=== PATIENT | female | born 1990 | race Caucasian/White ===

== ENCOUNTER 2017-12-12 21:49 | Emergency (ER) | payer BC, SELFPAY ==
[2017-12-12 21:50] VITALS: BP 126/72; PULSE 88; RESP 20; TEMP 36.7; O2SAT 94; BMI 40.1
--- NOTE | 2017-12-12 22:36 | RAD_ITS ---
STUDY: X-RAY CHEST REASON FOR EXAM: Female, 27 years old. Cough TECHNIQUE: Frontal and lateral views of the chest. COMPARISON: None. FINDINGS: The lungs are clear and expanded. There is no demonstrated pleural abnormality. Normal size heart. Normal mediastinum and dai. Normal visualized pulmonary arteries. Normal visualized aortic arch and descending thoracic aorta. Normal visualized thoracic spine. Normal visualized ribs, clavicles, and shoulders. There is no demonstrated abnormality of the visualized soft tissue structures of the upper abdomen. RAD/Chest PA and Lateral IMPRESSION: Normal x-ray examination of the chest. Electronically Signed: Andres Funk MD at 23:05 EDT , Service support ,
[2017-12-12] MEDS: predniSONE 20 MG Tablet 40 MG PO (22:48)
[2017-12-12] MEDS: Azithromycin 250 MG Tablet 500 MG PO (22:48)
[2017-12-12 22:53] VITALS: PULSE 98; RESP 18
[2017-12-12] MEDS: Ipratropium/Albuterol Sulfate 3 ML AMPUL.NEB INHALATION (22:53)
--- NOTE | 2017-12-12 23:38 | ED.DCSUM_ITS ---
- ER Visit Summary Date of Service: 12/12/17 Chief Complaint: Cough History of Present Illness: The patient is a 27 F with a cough and wheezing for 2 days. Patient had similar symptoms a couple weeks ago and was treated with prednisone. She has no history of lung disease or any medical issues. No history of heart disease or PE. No fevers. Non-smoker. Physical Examination: Afebrile and vital signs unremarkable. Breathing comfortably. Audible wheezing. Airway intact. No stridor. Heart regular rate and rhythm. Lungs show wheezing in all lewis with expiration. Calf soft and supple. Skin appears normal. Test Results: Chest x-ray unremarkable. Emergency Department Course and Treatment: I am concerned that the patient's symptoms returned, making a bacterial cause more likely. I did check a chest x- ray and this showed no evidence of pneumonia. Patient received prednisone, azithromycin, and DuoNeb here. On reevaluation, she is feeling better. Lung sounds are clear in all lewis without wheeze. Treatment Plan: We will prescribe a burst therapy of prednisone, azithromycin, and albuterol inhaler. Follow-up with primary care. Return for any new or worsening issues. Disposition: Discharged Impression: 1. Acute bronchitis This note was generated with [employer] dictation software. It may contain incorrect words, spelling, and punctuation that were not noted in review of the chart prior to signing ED Disposition - Plan for ED Patient: Chief Complaint: Cough Referrals: Aicha Reinoso MD [Primary Care Provider] -
--- NOTE | 2017-12-12 23:38 | ED.DEP ---
ED Disposition - Plan for ED Patient: Chief Complaint: Cough Instructions: ED Reactive Airway Disease Prescriptions: Azithromycin [Zithromax] 250 mg PO DAILY #4 tab Prednisone 10 mg PO UD #33 tab Referrals: Aicha Reinoso MD [Primary Care Provider] -
[2017-12-12 23:48] VITALS: BP 123/74; PULSE 96; RESP 18; O2SAT 93
--- NOTE | 2017-12-12 23:48 | ED.RN ---
PT GIVEN WRITTEN AND VERBAL DISCHARGE INSTRUCTIONS AND HOME GOING PRESCRIPTIONS. PT GIVEN INHALER AND INSTRUCTED ON USE BY THIS RN. PT DENIES ANY FURTHER QUESTIONS, AND IS TO FOLLOW UP WITH DR. MALLORY. PT AMBULATORY OUT OF DEPARTMENT WITH FAMILY.
== END 2017-12-12 23:48 | disposition home or self-care (01) ==
PROVIDERS: Emergency Provider Emergency Medicine; Family Provider Family Medicine; PCP Family Medicine
DX: J20.9 Acute bronchitis, unspecified (principal)
CPT/HCPCS: 71046; 94640; 99282

== ENCOUNTER 2022-10-26 23:00 | Inpatient (IN) | payer BC, SELFPAY ==
[2022-10-26 23:01] VITALS: BP 124/89; PULSE 99; RESP 15; TEMP 37.2; O2SAT 96; BMI 46.9
[2022-10-26 23:34] LABS: Internal QC Validated? YES +Cl - CLEAR BKGD; Pregnancy, Serum, hCG Quali. NEGATIVE Negative
[2022-10-26 23:37] LABS: Absolute Lymphocyte Count 1.23 X10^3/uL (0.83-4.51); Absolute Neutrophil Count 13.1 X10^3/uL (2.0-7.7); Basophil# 0.02 X10^3/uL; Basophil% 0.1 % (0-1); Eosinophil# 0.01 X10^3/uL; Eosinophils% 0.1 % (0-5); Hematocrit 44.7 % (37-47); Hemoglobin 14.6 g/dL (12.0-15.0); Lymphocyte # 1.23 X10^3/ul (0.83-4.51); Lymphocyte % 8.2 % (19-41); Mean Corp Hgb Conc 32.7 g/dL (32-36); Mean Corpuscular Hgb 28.1 pg (27.0-32.0); Mean Corpuscular Volume 86.1 fL (81-99); Mean Platelet Vol. 12.8 fl (6.2-12.0); Monocyte# 0.55 X10^3/uL; Monocyte% 3.7 % (0-10); NRBC Flagged by Analyzer 0 % (0-5); Neutrophil # 13.07 X10^3/uL (2.7-7.7); Neutrophil % 87.6 % (47-70); Platelet Count 317 K/mm3 (150-450); RBC Distribution Width CV 15.9 % (11.6-14.6); RBC Distribution Width SD 49.1 fl (35.1-43.9); Red Blood Count 5.19 M/mm3 (4.2-5.4); White Blood Count 14.9 K/mm3 (4.4-11.0)
[2022-10-26 23:38] LABS: Anion Gap 12 (5-15); BUN 11 mg/dL (7-18); BUN/Creat Ratio 13.5 RATIO (10-20); Calcium,Total 9.9 mg/dL (8.5-10.1); Chloride 103 mmol/L (98-107); Creatinine, Serum 0.81 mg/dL (0.55-1.02); EST Glomerular Filtration Rate 86 mL/min (>60); Est Glom Filt Rate - Afr Amer 104 mL/min (>60); Estimated Creatinine Clearance 88.89 ml/min; Glucose 175 mg/dL (74-106); Potassium 4.1 mmol/L (3.5-5.1); Sodium Level 137 mmol/L (136-145)
[2022-10-27] VITALS (10 sets, daily range): BP systolic 118–161; BP diastolic 86–99; PULSE 72–102; RESP 16–18; TEMP 36.3–36.9; O2SAT 91–99; BMI 46.4
--- NOTE | 2022-10-27 00:01 | CT_ITS ---
INDICATION: Pain RLQ EXAMINATION: CT ABDOMEN AND PELVIS WITH CONTRAST - CT Abdomen And Pelvis W/ Contrast Injection TECHNIQUE: Helically acquired images were obtained of the abdomen and pelvis following IV contrast. A radiation dose optimization technique was used for this scan. IV Contrast dosage and agent: Oral contrast: None. COMPARISON: None. FINDINGS: LOWER CHEST: Lung bases are clear. No cardiomegaly or pericardial effusion. LIVER: Homogeneous. No focal mass. GALLBLADDER AND BILIARY TREE: No calcified gallstones. No gallbladder distension or wall edema. No intra- or extrahepatic biliary ductal dilation. PANCREAS: Fat stranding adjacent to the head and body of the pancreas consistent with acute pancreatitis. SPLEEN: Normal size without focal cystic or solid mass. ADRENAL GLANDS: No nodules. KIDNEYS AND URETERS: Normal renal size and position. No hydronephrosis. PERITONEUM: No ascites or free air. No other fluid collection. BOWEL: No evidence of acute appendicitis. No stomach or bowel distension. No focal inflammatory change. LYMPH NODES: No enlarged mesenteric or retroperitoneal lymph nodes. VESSELS: Aorta is non-dilated. URINARY BLADDER: Unremarkable. REPRODUCTIVE ORGANS: No pelvic masses. ABDOMINAL WALL: Small umbilical hernia containing fat. BONES: No lytic or blastic abnormality. CT/Abdomen/Pelvis W IV Cont ONLY IMPRESSION: Acute pancreatitis. Electronically Signed: Moisés Scanlon MD at 1:12 [facility] ,
[2022-10-27 00:07] LABS: Mucous, Urine 0 SEEN /hpf (<or=2+)
[2022-10-27 00:09] LABS: Color, Urine Amber (Yellow); Glucose, Dipstick Normal (Normal); Leukocyte Esterase-Dipstick 500 /ul (Negative); Nitrite-Dipstick Positive (Negative); Occult Blood-Urine 150 /ul (Negative); Protein-Dipstick 30 mg/dl (Negative); Urine Clarity Cloudy (Clear); Urine Urobilinogen 4 mg/dl (Normal)
[2022-10-27 00:11] LABS: Urine Bilirubin Dipstick 6 mg/dL (Negative)
[2022-10-27 00:12] LABS: Ketone-Dipstick 150 mg/dl (Negative)
[2022-10-27 00:19] LABS: Bacteria 3+ /hpf (None Seen); Red Blood Cells-Urine 0-5 SEEN /hpf (0-5); Squamous Epithelial Cells - UA 10-25 SEEN /hpf (5-10); White Blood Cells 50-100 SEEN /hpf (0-5)
--- NOTE | 2022-10-27 00:22 | EDS_ITS ---
HPI HPI - GI History of Present Illness Chief Complaint: Abd Pain Informant: patient Narrative Narrative: Patient presents with abdominal pain that started somewhere around 3:00 yesterday afternoon. It started mild and is slowly worsened. It waxes and wanes a little bit but the trend is clearly toward worsening. At first she thought it was a little bit more upper mid abdomen and the lower abdomen but now it seems to be more lower and leans more toward the right side. She has never had back or flank pain. She vomited once yesterday but has not had that issue today. But she has only eaten 1 bit of toast today. She denies any urinary symptoms such as frequency urgency. She does note that her urine looks dark. Ever since she has been on Ozempic for about a month her urine has been getting darker and darker. Her last menstrual cycle was about 3 weeks ago normal timing. She has no discharge or bleeding now. She has had no prior abdominal surgery including no appendectomy or cholecystectomy. No fever at home although she has felt hot her highest temperature measured was about 99. When I see the patient I note her urine is rather dark and almost oranges colored. [facility] Medical History (Updated 10/27/22 @ 07:[address] Kenrick Shi MD) Hypothyroidism Home Medications azithromycin 250 mg tablet 250 mg PO DAILY #4 tabs 12/12/17 [Rx Last Taken Unknown] prednisone 10 mg tablet 10 mg PO UD #33 tabs 12/12/17 [Rx Last Taken Unknown] Allergy/AdvReac Type Severity Reaction Status Date / Time Penicillins Allergy Unknown Verified 10/26/22 23:08 Social History Smoking Status: Never smoker ROS ROS ED Constitutional Constitutional ED: Reports subjective ENT ENT ED: Denies rhinorrhea Cardiovascular Cardiovascular: Denies chest pain Respiratory/Chest Respiratory/Chest: Denies cough or dyspnea Gastrointestinal Gastrointestinal: Reports abdominal pain, nausea and vomiting; Denies constipation or diarrhea Genitourinary Genitourinary ED: Reports other Details: See history of present illness. ; Denies dysuria, hematuria or urinary frequency Musculoskeletal Musculoskeletal: Denies back pain Integumentary Denies rash Neurologic Neurologic: Denies paresthesias Endocrine Endocrinology: Denies polydipsia or polyuria Hematologic/Lymphatic Hematologic/Lymphatic: Denies easy bleeding or easy bruising Allergic/Immunologic Allergic/Immunologic ED: Denies urticaria EXAM Physical Exam Narrative Exam Narrative: Patient is awake alert sitting on bed. She is nontoxic. HEENT shows minimally dry mucous membranes no sign of trauma. Chest is clear bilaterally no pain with a deep breath. When she takes a very deep breath it she states it does hurt her abdomen but is all in the lower abdomen not even upper abdomen. But it does not cause any chest discomfort. Heart is regular without murmur gallop or rub. Peripheral pulses are equal. Abdomen is obese but does not appear to be distended. Bowel sounds are normal. She does have some tenderness that tends to be more in the lower abdomen and more on the right side. Left upper is not at all tender. When I press in the right upper abdomen it does cause some discomfort but it causes discomfort in the right lower abdomen not the right upper. No rebound or guarding. : No CVA tenderness. No suprapubic tenderness of marked nature. Extremities show no edema. Skin shows no rash including in the area of discomfort. Const Vital Signs: 10/26/22 23:01 10/27/22 01:05 Temperature 98.9 F Temperature Source Temporal Pulse Rate 99 Respiratory Rate 15 Blood Pressure 124/89 H Blood Pressure Mean 100 Pulse Ox 96 99 Oxygen Delivery Method Room Air Room Air MDM MDM MDM Narrative Medical decision making narrative: My independent interpretation of patient's CT of the abdomen does not show any inflammation near the appendix. But she does have a lot of inflammation near the pancreas. Final reading is also consistent with acute pancreatitis but no acute gallbladder abnormality. Her blood work shows mild elevation of white count at 14.9. This hemoglobin and platelets are normal. Electrolytes are normal. Glucose is a bit up at 175. But her liver function test show elevation of all her transaminases and total bili. is negative. Patient was started on Ozempic about a month ago. She has noticed dark urine since. I think this is likely a contributor to her pancreatitis. But I am surprised at the elevated liver test. I think this patient does need to be admitted with significantly elevated lipase also. She is also showing signs of UTI on the urine. This will be treated with an initial dose. Levaquin usually does not cause significant liver function test elevations. I discussed the case with the hospitalist. Lab Data Attestation: I reviewed the patient's lab results. Labs: Laboratory Results - last 24 hr 10/26/22 10/26/22 10/26/22 23:10 23:10 23:10 WBC 14.9 H RBC 5.19 Hgb 14.6 Hct 44.7 MCV 86.1 MCH 28.1 MCHC 32.7 RDW Std Deviation 49.1 H RDW Coeff of Ilana 15.9 H Plt Count 317 MPV 12.8 H Immature Gran % (Auto) 0.300 Neut % (Auto) 87.6 H Lymph % (Auto) 8.2 L [place] % (Auto) 3.7 Eos % (Auto) 0.1 Baso % (Auto) 0.1 Absolute Neuts (auto) 13.1 H Absolute Lymphs (auto) 1.23 Nucleated RBC % 0 PT INR Sodium 137 Potassium 4.1 Chloride 103 Carbon Dioxide 22.0 Anion Gap 12 BUN 11 Creatinine 0.81 Estim Creat Clear Calc 88.89 Est GFR (MDRD) Af Amer 104 Est GFR (MDRD) Non-Af 86 BUN/Creatinine Ratio 13.5 Glucose 175 H Calcium 9.9 Total Bilirubin Direct Bilirubin AST ALT Alkaline Phosphatase Total Protein Albumin Globulin Lipase Serum , Qual NEGATIVE Urine Color Urine Clarity Urine pH Ur Specific [place] Urine Protein Urine Glucose (UA) Urine Ketones Urine Occult Blood Urine Nitrite Urine Bilirubin Urine Urobilinogen Ur Leukocyte Esterase Urine RBC Urine WBC Ur Squamous Epith Cells Urine Bacteria Urine Mucus 10/26/22 10/26/22 10/26/22 23:10 23:10 23:58 WBC RBC Hgb Hct MCV MCH MCHC RDW Std Deviation RDW Coeff of Ilana Plt Count MPV Immature Gran % (Auto) Neut % (Auto) Lymph % (Auto) [place] % (Auto) Eos % (Auto) Baso % (Auto) Absolute Neuts (auto) Absolute Lymphs (auto) Nucleated RBC % PT INR Sodium Potassium Chloride Carbon Dioxide Anion Gap BUN Creatinine Estim Creat Clear Calc Est GFR (MDRD) Af Amer Est GFR (MDRD) Non-Af BUN/Creatinine Ratio Glucose Calcium Total Bilirubin 3.80 H Direct Bilirubin 2.51 H AST 160 H ALT 505 H Alkaline Phosphatase 201 H Total Protein 8.3 H Albumin 3.7 Globulin 4.6 H Lipase 8531 H Serum , Qual Urine Color [place] Urine Clarity Cloudy Urine pH 5.0 Ur Specific [place] 1.030 Urine Protein 30 H Urine Glucose (UA) Normal Urine Ketones 150 A* Urine Occult Blood 150 H Urine Nitrite Positive H Urine Bilirubin 6 H Urine Urobilinogen 4 H Ur Leukocyte Esterase 500 H Urine RBC 0-5 SEEN Urine WBC 50-100 SEEN Ur Squamous Epith Cells 10-25 SEEN Urine Bacteria 3+ Urine Mucus 0 SEEN 10/27/22 01:39 WBC RBC Hgb Hct MCV MCH MCHC RDW Std Deviation RDW Coeff of Ilana Plt Count MPV Immature Gran % (Auto) Neut % (Auto) Lymph % (Auto) [place] % (Auto) Eos % (Auto) Baso % (Auto) Absolute Neuts (auto) Absolute Lymphs (auto) Nucleated RBC % PT 13.4 INR 1.0 Sodium Potassium Chloride Carbon Dioxide Anion Gap BUN Creatinine Estim Creat Clear Calc Est GFR (MDRD) Af Amer Est GFR (MDRD) Non-Af BUN/Creatinine Ratio Glucose Calcium Total Bilirubin Direct Bilirubin AST ALT Alkaline Phosphatase Total Protein Albumin Globulin Lipase Serum , Qual Urine Color Urine Clarity Urine pH Ur Specific [place] Urine Protein Urine Glucose (UA) Urine Ketones Urine Occult Blood Urine Nitrite Urine Bilirubin Urine Urobilinogen Ur Leukocyte Esterase Urine RBC Urine WBC Ur Squamous Epith Cells Urine Bacteria Urine Mucus Radiography Diagnostic Testing: Clinical Impression(s) from Imaging Studies Abdomen/Pelvis CT 10/27/22 00:01 IMPRESSION: Acute pancreatitis. Electronically Signed: Moisés Scanlon MD at 1:12 EST , Discharge Plan Dx/Rx/DC Orders Clinical Impression: Pancreatitis, Morbid obesity with BMI of 45.0-49.9, adult, UTI (urinary tract infection) Disposition Disposition: Acute Care Hospital [facility]
[2022-10-27 00:38] LABS: AST(SGOT) 160 U/L (15-37); Alanine Aminotransfer ALT/SGPT 505 U/L (13-56); Albumin, Serum 3.7 g/dL (3.2-5.0); Alkaline Phosphatase 201 U/L (45-117); Bilirubin, Direct 2.51 mg/dL (0.00-0.30); Globulin 4.6 g/dL (2.2-4.2); Protein, Total 8.3 g/dL (6.4-8.2)
[2022-10-27] MEDS: Ondansetron 4 MG/2 ML Vial IV (01:02)
[2022-10-27] MEDS: Morphine 4 MG/ML Syringe IV (01:02)
[2022-10-27] MEDS: 0.9% Normal Saline 1,000 ML 1000 ML IV (01:03)
[2022-10-27 01:45] LABS: Lipase 8531 U/L (73-393)
[2022-10-27 01:55] LABS: Prothrombin Time (Protime)PT. 13.4 SECONDS (11.7-14.9)
--- NOTE | 2022-10-27 02:35 | PCM.HP.STD ---
HPI - General General Date of Admission: 10/27/22 Date of Service: 10/27/22 Chief Complaint: Abdominal pain HPI Narrative MARTIN LÓPEZ, is a 31 F with a significant history of morbid obesity and hypothyroidism who presents to the emergency department with abdominal pain. She reports that her abdominal pain started concurrently at her epigastric area and right lumbar area. The pain at the right lumbar area radiated to her bilateral lower abdomen. The pain started a day before presentation and the pain has been progressively worsening. At rest the pain is a dull pain. When she takes a deep breath the pain becomes sharp and more intense. Also the pain worsens with moving. She denies any ameliorating factors to the pain. The pain at its high intensity is a 9 out of 10. Associated with her symptoms is nausea and vomiting which has improved. However she is unable to eat as when she eats she feels safe at the food is occupying her epigastric area. Patient is on metformin and Ozempic which she takes for prediabetes and for weight loss. She reported that follow-up test showed that she had no prediabetes. She reported beginning taking Ozempic at around since September 2022. When she started Ozempic she has noticed that her urine tends very dark. [facility] Medical History (Updated 10/27/22 @ 04:[address] Trevon Chappell MD) Hypothyroidism Home Medications azithromycin 250 mg tablet 250 mg PO DAILY #4 tabs 12/12/17 [Rx Last Taken Unknown] prednisone 10 mg tablet 10 mg PO UD #33 tabs 12/12/17 [Rx Last Taken Unknown] Allergy/AdvReac Type Severity Reaction Status Date / Time Penicillins Allergy Unknown Verified 10/26/22 23:08 Family History no significant family his no significant family history Surgical History no surgical history no surgical history Social History Smoking Status: Never smoker ROS ROS Narrative Pertinent positives and pertinent negatives as noted in HPI. All other systems were reviewed and are negative Vital Signs Vital Signs Vital Signs: 10/26/22 23:01 10/27/22 01:05 Temperature 98.9 F Temperature Source Temporal Pulse Rate 99 Respiratory Rate 15 Blood Pressure 124/89 H Blood Pressure Mean 100 Pulse Ox 96 99 Oxygen Delivery Method Room Air Room Air Weight Weight: 127.913 kg Body Mass Index (BMI) 46.9 Physical Exam Narrative Physical exam: General: Well-nourished, well-developed. Head: Normocephalic, atraumatic, no tenderness Eyes: Sclera icterus. Vision is grossly intact. EOMI ENT, no trauma, moist mucous membranes, no rhinorrhea Neck: Nontender, No thyromegaly. CVS: Regular rate and rhythm. S1-S2 present. No murmur, gallop or rub. Respiratory : clear to auscultation bilaterally, chest wall nontender, no wheezing Abdomen: Soft, nontender, nondistended, normal bowel sounds, no masses : Deferred Back: Nontender, no CVA tenderness, no midline spinal tenderness, deformities, step-offs Extremities: Nontender full range of motion, no trauma Skin: Sclerae icterus. Normal color, no trauma, abrasions Neuro: Alert, oriented, cranial nerves II through XII grossly intact. Psychiatry: Normal mood. Normal affect. Not depressed. Not anxious. Results Lab / Micro Data Result Diagrams: 10/26/22 23:10 10/26/22 23:10 Labs: Laboratory Results - last 24 hr 10/26/22 23:10: WBC 14.9 H, RBC 5.19, Hgb 14.6, Hct 44.7, MCV 86.1, MCH 28.1, MCHC 32.7, RDW Std Deviation 49.1 H, RDW Coeff of Ilana 15.9 H, Plt Count 317, MPV 12.8 H, Immature Gran % (Auto) 0.300, Neut % (Auto) 87.6 H, Lymph % (Auto) 8.2 L, [place] % (Auto) 3.7, Eos % (Auto) 0.1, Baso % (Auto) 0.1, Absolute Neuts (auto) 13.1 H, Absolute Lymphs (auto) 1.23, Nucleated RBC % 0 10/26/22 23:10: Sodium 137, Potassium 4.1, Chloride 103, Carbon Dioxide 22.0, Anion Gap 12, BUN 11, Creatinine 0.81, Estim Creat Clear Calc 88.89, Est GFR (MDRD) Af Amer 104, Est GFR (MDRD) Non-Af 86, BUN/Creatinine Ratio 13.5, Glucose 175 H, Calcium 9.9 10/26/22 23:10: Serum , Qual NEGATIVE 10/26/22 23:10: Total Bilirubin 3.80 H, Direct Bilirubin 2.51 H, AST 160 H, ALT 505 H, Alkaline Phosphatase 201 H, Total Protein 8.3 H, Albumin 3.7, Globulin 4.6 H 10/26/22 23:10: Lipase 8531 H 10/26/22 23:58: Urine Color [place], Urine Clarity Cloudy, Urine pH 5.0, Ur Specific [place] 1.030, Urine Protein 30 H, Urine Glucose (UA) Normal, Urine Ketones 150 A*, Urine Occult Blood 150 H, Urine Nitrite Positive H, Urine Bilirubin 6 H, Urine Urobilinogen 4 H, Ur Leukocyte Esterase 500 H, Urine RBC 0-5 SEEN, Urine WBC 50-100 SEEN, Ur Squamous Epith Cells 10-25 SEEN, Urine Bacteria 3+, Urine Mucus 0 SEEN 10/27/22 01:39: PT 13.4, INR 1.0 Radiology Impression Abdomen/Pelvis CT 10/27/22 00:01 IMPRESSION: Acute pancreatitis. Electronically Signed: Moisés Scanlon MD at 1:12 EST , Assessment & Plan Assessment/Plan (1) Pancreatitis: (2) Morbid obesity with BMI of 45.0-49.9, adult: PLAN: Plan Acute pancreatitis Likely medication induced (Ozempic) Lipase level: 8,531. Hematocrit: 44.7 BUN:11 Abdomen/pelvis CT with acute pancreatitis. Abdomen pelvis CT was independently interpreted and I agree with radiology interpretation. Lactated Ringer's at 250ml/hr Pain regimen: Received morphine 4 mg at the emergency department and continued on a as needed basis. At emergency department. [] Ordered. Antiemetics: Received morphine 4 mg IV at the emergency department and continued on a as needed basis. Ultrasound gallbladder N.p.o. till after ultrasound gallbladder tenderness Liquid diet CBC showed white count of 14,900, trend. CMP showed elevated liver biochemistry; and elevated bilirubin. Trend CMP. GI consult Acute cystitis Reports dark urine. Urinalysis abnormal. Allergic to penicillin (allergy unknown) . Started on Levaquin at the emergency department and continued. Morbid Obesity: BMI: 46.9 kg/m?. Complicates care. Lifestyle modification recommended. DVT prophylaxis Subcutaneous Lovenox ordered. Charges/Coding Visit Charges Inpatient E&M: 22757 Init Hosp L2
[2022-10-27] MEDS: levoFLOXacin IV 500 MG/100 ML BAG 100 MG IV (02:52)
[2022-10-27] MEDS: Lactated Ringers 1,000 ML 250 ML IV ×3 (03:46→12:17)
[2022-10-27 04:24] LABS: Absolute Lymphocyte Count 1.36 X10^3/uL (0.83-4.51); Absolute Neutrophil Count 13.2 X10^3/uL (2.0-7.7); Basophil# 0.01 X10^3/uL; Basophil% 0.1 % (0-1); Hematocrit 43.1 % (37-47); Hemoglobin 13.6 g/dL (12.0-15.0); Lymphocyte # 1.36 X10^3/ul (0.83-4.51); Lymphocyte % 8.9 % (19-41); Mean Corp Hgb Conc 31.6 g/dL (32-36); Mean Corpuscular Hgb 27.5 pg (27.0-32.0); Mean Corpuscular Volume 87.2 fL (81-99); Mean Platelet Vol. 12.6 fl (6.2-12.0); Monocyte# 0.68 X10^3/uL; Monocyte% 4.4 % (0-10); NRBC Flagged by Analyzer 0 % (0-5); Neutrophil # 13.19 X10^3/uL (2.7-7.7); Neutrophil % 86.2 % (47-70); Platelet Count 285 K/mm3 (150-450); RBC Distribution Width SD 50.2 fl (35.1-43.9); Red Blood Count 4.94 M/mm3 (4.2-5.4); White Blood Count 15.3 K/mm3 (4.4-11.0)
[2022-10-27] MEDS: Morphine 2 MG/ML Syringe 4 MG IV ×3 (04:24→17:00)
[2022-10-27 04:40] LABS: ALB/GLOB Ratio 0.8 RATIO (0.9-2.4); AST(SGOT) 127 U/L (15-37); Alanine Aminotransfer ALT/SGPT 420 U/L (13-56); Albumin, Serum 3.3 g/dL (3.2-5.0); Alkaline Phosphatase 190 U/L (45-117); Anion Gap 8 (5-15); BUN 11 mg/dL (7-18); BUN/Creat Ratio 14.8 RATIO (10-20); Calcium,Total 9.3 mg/dL (8.5-10.1); Chloride 102 mmol/L (98-107); Cholesterol 250 mg/dL (200); Creatinine, Serum 0.74 mg/dL (0.55-1.02); EST Glomerular Filtration Rate 95 mL/min (>60); Est Glom Filt Rate - Afr Amer 115 mL/min (>60); Globulin 4.1 g/dL (2.2-4.2); Glucose 145 mg/dL (74-106); High Density Lipoprotein 47 mg/dL; Potassium 3.9 mmol/L (3.5-5.1); Protein, Total 7.4 g/dL (6.4-8.2); Sodium Level 134 mmol/L (136-145); Triglycerides 74 mg/dL; Very Low Density Lipoprotein 15 mg/dL (5-40)
--- NOTE | 2022-10-27 05:55 | US_ITS ---
STUDY: ABDOMINAL ULTRASOUND - RIGHT UPPER QUADRANT REASON FOR VISIT: Female, 31 years old Acute pancreatitis TECHNIQUE: Ultrasound evaluation of the right upper quadrant was performed with real-time and static porras-scale imaging. TECHNICAL QUALITY: Limited. Examination limited due to a combination of factors including obesity and bowel gas. COMPARISON: Comparison is made with prior CT scan abdomen and pelvis done earlier in the day. FINDINGS: Liver: The liver is enlarged and measures 19 cm. There is increased echogenicity consistent with fatty infiltration. The bile ducts are within normal limits. There is hepatic color flow. The direction of portal flow is hepatopetal. There is no demonstrated mass lesion. Gallbladder: Normal distended gallbladder. The gallbladder wall measures 3.8 mm. There is a negative sonographic Phillips''s sign. There is no pericholecystic fluid. There are no gallstones. Common Bile Duct (C.B.D.): The common bile duct measures 8.9 mm. Pancreas: There is nonvisualization of the pancreas due to overlying bowel gas. Right Kidney: Normal size of the right kidney. The right kidney measures 12.3 cm x 5.1 cm x 5.7 cm. Normal renal cortex. The right cortex measures 1.7 cm. There is no demonstrated renal mass or cyst. There is no right hydronephrosis. US/Gallbladder IMPRESSION: Mild hepatomegaly and fatty infiltration of the liver. Electronically Signed: Balaji Wood MD at 12:56 EST ,
[2022-10-27 06:21] LABS: Bedside Glucose 154 mg/dL (74-106)
--- NOTE | 2022-10-27 07:30 | EX.PCM.CON.G ---
HPI Consult Data Date of Consult: 10/27/22 HPI Narrative Reason for Consultation: Pancreatitis and jaundice HPI Narrative: MARTIN LÓPEZ, is a 31 F who presents with abdominal pain. It started in the midepigastric region radiating to the back around 3:00 yesterday afternoon.? It started mild and is slowly worsened.? It waxes and wanes a little bit but the trend is clearly toward worsening.? At first she thought it was a little bit more upper mid abdomen and the lower abdomen but now it seems to be more lower and leans more toward the right side.? She has never had back or flank pain.? She vomited once yesterday but has not had that issue today.? But she has only eaten 1 bit of toast today.? She denies any urinary symptoms such as frequency urgency.? She does note that her urine looks dark.? Ever since she has been on Ozempic for about a month her urine has been getting darker and darker.? Her last menstrual cycle was about 3 weeks ago normal timing.? She has no discharge or bleeding now.? She has had no prior abdominal surgery including no appendectomy or cholecystectomy.? No fever at home although she has felt hot her highest temperature measured was about 99. Patient is on metformin and Ozempic which she takes for prediabetes and for weight loss.? She reported that follow-up test showed that she had no prediabetes.? She reported beginning taking Ozempic at around since September 2022.? When she started Ozempic she has noticed that her urine tends very dark. Total Bilirubin 3.80 H, Direct Bilirubin 2.51 H, AST 160 H, ALT 505 H, Alkaline Phosphatase 201 H, Total Protein 8.3 H, Albumin 3.7, Globulin 4.6 H 10/26/22 23:10: Lipase 8531 H FINDINGS on ultrasound: Liver:? The liver is enlarged and measures 19 cm.? There is increased echogenicity consistent with fatty infiltration.? The bile ducts are within normal limits.? There is hepatic color flow.? The direction of portal flow is hepatopetal.? There is no demonstrated mass lesion. Gallbladder:? Normal distended gallbladder.? The gallbladder wall measures 3.8 mm.? There is a negative sonographic Phillips''s sign.? There is no pericholecystic fluid.? There are no gallstones. Common Bile Duct (C.B.D.): ? The common bile duct measures 8.9 mm. Pancreas: ? There is nonvisualization of the pancreas due to overlying bowel gas. Findings on CAT scan displayed only pancreatitis [facility] Medical History (Updated 10/27/22 @ 16:[address] Harden Friend, DO) Hypothyroidism Home Medications azithromycin 250 mg tablet 250 mg PO DAILY #4 tabs 12/12/17 [Rx Last Taken Unknown] prednisone 10 mg tablet 10 mg PO UD #33 tabs 12/12/17 [Rx Last Taken Unknown] Allergy/AdvReac Type Severity Reaction Status Date / Time Penicillins Allergy Unknown Verified 10/26/22 23:08 Family History no significant family his Surgical History no surgical history Social History Smoking Status: Never smoker ROS ROS Narrative Pertinent positives and pertinent negatives as noted in HPI. All other systems were reviewed and are negative Physical Exam Narrative Physical exam: General: Well-nourished, well-developed. Head: Normocephalic, atraumatic, no tenderness Eyes: Sclera icterus. Vision is grossly intact. EOMI ENT, no trauma, moist mucous membranes, no rhinorrhea Neck: Nontender, No thyromegaly. CVS: Regular rate and rhythm. S1-S2 present. No murmur, gallop or rub. Respiratory : clear to auscultation bilaterally, chest wall nontender, no wheezing Abdomen: Soft, nontender, nondistended, normal bowel sounds, no masses : Deferred Back: Nontender, no CVA tenderness, no midline spinal tenderness, deformities, step-offs Extremities: Nontender full range of motion, no trauma Skin: Sclerae icterus. Normal color, no trauma, abrasions Neuro: Alert, oriented, cranial nerves II through XII grossly intact. Psychiatry: Normal mood. Normal affect. Not depressed. Not anxious. Lab / Micro Data Result Diagrams: 10/27/22 04:15 10/27/22 04:15 Labs: Laboratory Results - last 24 hr 10/26/22 23:10: WBC 14.9 H, RBC 5.19, Hgb 14.6, Hct 44.7, MCV 86.1, MCH 28.1, MCHC 32.7, RDW Std Deviation 49.1 H, RDW Coeff of Ilana 15.9 H, Plt Count 317, MPV 12.8 H, Immature Gran % (Auto) 0.300, Neut % (Auto) 87.6 H, Lymph % (Auto) 8.2 L, [place] % (Auto) 3.7, Eos % (Auto) 0.1, Baso % (Auto) 0.1, Absolute Neuts (auto) 13.1 H, Absolute Lymphs (auto) 1.23, Nucleated RBC % 0 10/26/22 23:10: Sodium 137, Potassium 4.1, Chloride 103, Carbon Dioxide 22.0, Anion Gap 12, BUN 11, Creatinine 0.81, Estim Creat Clear Calc 88.89, Est GFR (MDRD) Af Amer 104, Est GFR (MDRD) Non-Af 86, BUN/Creatinine Ratio 13.5, Glucose 175 H, Calcium 9.9 10/26/22 23:10: Serum , Qual NEGATIVE 10/26/22 23:10: Total Bilirubin 3.80 H, Direct Bilirubin 2.51 H, AST 160 H, ALT 505 H, Alkaline Phosphatase 201 H, Total Protein 8.3 H, Albumin 3.7, Globulin 4.6 H 10/26/22 23:10: Lipase 8531 H 10/26/22 23:58: Urine Color Libia, Urine Clarity Cloudy, Urine pH 5.0, Ur Specific [place] 1.030, Urine Protein 30 H, Urine Glucose (UA) Normal, Urine Ketones 150 A*, Urine Occult Blood 150 H, Urine Nitrite Positive H, Urine Bilirubin 6 H, Urine Urobilinogen 4 H, Ur Leukocyte Esterase 500 H, Urine RBC 0-5 SEEN, Urine WBC 50-100 SEEN, Ur Squamous Epith Cells 10-25 SEEN, Urine Bacteria 3+, Urine Mucus 0 SEEN 10/27/22 01:39: PT 13.4, INR 1.0 10/27/22 04:15: WBC 15.3 H, RBC 4.94, Hgb 13.6, Hct 43.1, MCV 87.2, MCH 27.5, MCHC 31.6 L, RDW Std Deviation 50.2 H, RDW Coeff of Ilana 16.0 H, Plt Count 285, MPV 12.6 H, Immature Gran % (Auto) 0.400, Neut % (Auto) 86.2 H, Lymph % (Auto) 8.9 L, [place] % (Auto) 4.4, Eos % (Auto) 0.0, Baso % (Auto) 0.1, Absolute Neuts (auto) 13.2 H, Absolute Lymphs (auto) 1.36, Nucleated RBC % 0 10/27/22 04:15: Sodium 134 L, Potassium 3.9, Chloride 102, Carbon Dioxide 24.0, Anion Gap 8, BUN 11, Creatinine 0.74, Estim Creat Clear Calc 97.30, Est GFR (MDRD) Af Amer 115, Est GFR (MDRD) Non-Af 95, BUN/Creatinine Ratio 14.8, Glucose 145 H, Calcium 9.3, Total Bilirubin 4.10 H, AST 127 H, ALT 420 H, Alkaline Phosphatase 190 H, Total Protein 7.4, Albumin 3.3, Globulin 4.1, Albumin/Globulin Ratio 0.8 L, Triglycerides 74, Cholesterol 250 H, LDL Cholesterol 188 H, VLDL Cholesterol 15, HDL Cholesterol 47 10/27/22 05:59: POC Glucose 154 H 10/27/22 12:50: POC Glucose 117 H Radiology Impression Abdomen/Pelvis CT 10/27/22 00:01 IMPRESSION: Acute pancreatitis. Electronically Signed: Moisés Scanlon MD at 1:12 EST , Gallbladder Ultrasound 10/27/22 05:55 IMPRESSION: Mild hepatomegaly and fatty infiltration of the liver. Electronically Signed: Balaji Wood MD at 12:56 EST , Assessment & Plan Assessment/Plan (1) Pancreatitis: (2) Morbid obesity with BMI of 45.0-49.9, adult: (3) Common bile duct dilatation: PLAN: Plan Acute pancreatitis Likely medication induced (Ozempic). However she has a dilated duct and her bilirubin and alkaline phosphatase are still increasing. That is consistent with likely choledocholithiasis. Recommend diagnostic and therapeutic ERCP. She was explained alternatives, risk, benefits including not withstanding posterior to be pancreatitis, perforation, bleeding and . She gave verbal and written consent for the procedure. CBC showed white count of 14,900, trend. CMP showed elevated liver biochemistry; and elevated bilirubin. Trend CMP. Lipase level: 8,531. Hematocrit: 44.7 BUN:11 Abdomen/pelvis CT with acute pancreatitis. Abdomen pelvis CT was independently interpreted and I agree with radiology interpretation. Lactated Ringer's at 250ml/hr Pain regimen: Received morphine 4 mg at the emergency department and continued on a as needed basis. At emergency department. [] Ordered. Antiemetics: Received morphine 4 mg IV at the emergency department and continued on a as needed basis. [facility]. [facility] Charg[facility]/Coding Visit Charges Inpatient E&M: 13506 Init Hosp L3
--- NOTE | 2022-10-27 10:18 | CASEMGMT ---
Addendum entered by Bruna Bobo 10/27/22 10:39: Pt denies any alcohol other than rarely, cigarette, street drug or illegal drug use. Original Note: RN CAM Assessment: Face to Face with pt for initial transition planning/care coordination assessment. RN CM introduced self and role at [facility], pt voices understanding and consents to assessment. Pt lying in bed in no distress, mother at bedside. Pt is A/O x4 and answers all questions appropriately at this time. Care providers, pharmacy, and demographics verified/updated. Admitting Dx: acute pancreatitis, UTI PCP:Arleth Specialists:brian العلي Preferred Pharmacy: [facility] Retail Insurance: [employer] Prescription Benefit: yes LNOK: Chantel/Rehan Stanfordman, parents; Irving Job, friend Living Arrangements: Pt lives with parents, sister and 2 nephews in a 1 1/2 story home with 2 steps to enter. Pt reports she is I in ADL's and denies concerns at home. Transportation: Pt drives self and denies concerns with transportation. DME/HHC/SNF: Pt does not use AD but has access to crutches, cane and a walker. Pt denies hx of HHC or SNF stays. Pt states no concerns with going home at time of dc. Pt states no further concerns/needs. CM to follow. Advised pt to ask CM if any further question/concerns/needs arise, voices understanding. Pt Goal: Home Plan: Home
--- NOTE | 2022-10-27 12:21 | CHAPLAIN ---
Type of Pastoral Visit _x__ Initial Visit ___ Follow-up Visit ___ On-call Visit ___ General Patient Visit ___ Spiritual Assessment ___ Family Conference ___ Bereavement ___ Rapid Response ___ Code Blue ___ Other (describe below) Pastoral Care Referral From _x__ Patient ___ Family ___ Nurse ___ Physician ___ Pinsetter Mechanic Helper ___ Skip Operator ___ Other (describe below) Sacrament/Intervention ___ Active listening ___ Anointing ___ Gnosticism ___ Bereavement ___ Communion ___ Kaye exploration ___ ___ Life review _x__ Prayer ___ Reconciliation ___ Sacrament of Sick _x__ Supportive presence ___ Wedding ___ Other (describe below) Pastoral Comments RN in room at time of visit; patient and her mother are in the room; pt states that she has pain and discomfort; pt would like to be able to sleep; pt accepts offer of support and prayer but would welcome some time of quiet and rest; brief visit; offer of future support given to both
[2022-10-27 13:11] LABS: Bedside Glucose 117 mg/dL (74-106)
--- NOTE | 2022-10-27 14:30 | NURSING ---
patient transferred off the floor via endo staff for ERCP.
[2022-10-27] MEDS: Lactated Ringers 1,000 ML 15 ML IV (14:54)
--- NOTE | 2022-10-27 17:35 | RAD_ITS ---
EXAM: INTRAOPERATIVE CHOLANGIOGRAM FLUOROSCOPY TIME: 71.8 sec RADIATION DOSE: 33.5 mGy TOTAL NUMBER OF IMAGES: 1 COMPARISON: None. PROVIDED CLINICAL HISTORY: STONES PAIN TECHNIQUE: The examination was performed with physician in attendance. Under fluoroscopic observation, fluoroscopic images were obtained in the operating room. FINDINGS: First image demonstrates surgical instruments overlying the [id number]. Contrast is identified in a cannulated common bile duct. Retrograde contrast is notseen in the pancreatic duct. Contrast is noted in the proximal duodenum. Contrast is seen in the intrahepatic ducts. RAD/ERCP Biliary/Pancreas IMPRESSION: Fluoroscopic assistance images were obtained. Pertinent findings noted above. Electronically Signed: Andres Funk MD at 18:33 EST ,
--- NOTE | 2022-10-27 18:18 | OP.ERCP_ITS ---
Patient Name: Kimberly Santos Procedure Date: 10/27/2022 5:14 PM Date of : 1990 Age: 31 Procedure: ERCP Indications: Bile duct stone(s) Providers: Dereck Lovelace DO Medicines: Monitored Anesthesia Care Patient Profile: This is a 31 year old female. Refer to note in patient chart for documentation of history and physical. Patient has symptoms of acute jaundice. Complications: No immediate complications. Procedure: Pre-Anesthesia Assessment: - Prior to the procedure, a History and Physical was performed, and patient medications and allergies were reviewed. The patient is competent. The risks and benefits of the procedure and the sedation options and risks were discussed with the patient. All questions were answered and informed consent was obtained. Patient identification and proposed procedure were verified by the physician in the pre-procedure area. Mental Status Examination: alert and oriented. Airway Examination: normal oropharyngeal airway and neck mobility. Respiratory Examination: clear to auscultation. CV Examination: normal. Prophylactic Antibiotics: The patient does not require prophylactic antibiotics. Prior Anticoagulants: The patient has taken no previous anticoagulant or antiplatelet agents. ASA Grade Assessment: II - A patient with mild systemic disease. After reviewing the risks and benefits, the patient was deemed in satisfactory condition to undergo the procedure. The anesthesia plan was to use monitored anesthesia care (MAC). Immediately prior to administration of medications, the patient was re-assessed for adequacy to receive sedatives. The heart rate, respiratory rate, oxygen saturations, blood pressure, adequacy of pulmonary ventilation, and response to care were monitored throughout the procedure. The physical status of the patient was re-assessed after the procedure. After obtaining informed consent, the scope was passed under direct vision. Throughout the procedure, the patient's blood pressure, pulse, and oxygen saturations were monitored continuously. The Duodenoscope was introduced through the mouth, and advanced to the duodenum and used to inject contrast into the bile duct and dorsal pancreatic duct. The ERCP was accomplished without difficulty. The patient tolerated the procedure well. Scope In: 5:38:51 PM Scope Out: 6:06:54 PM Total Procedure Duration Time 0 hours 28 minutes 3 seconds Findings: The compressor operator film was normal. The esophagus was successfully intubated under direct vision. The scope was advanced to a normal major papilla in the descending duodenum without detailed examination of the pharynx, larynx and associated structures, and upper GI tract. The upper GI tract was grossly normal. The bile duct was deeply cannulated with the short-nosed traction sphincterotome. Contrast was injected. I personally interpreted the pancreatic duct images. There was brisk flow of contrast through the ducts. Image quality was excellent. Contrast extended to the main bile duct. The entire opacified area and main bile duct were moderately dilated and diffusely dilated, with a stone causing an obstruction. The largest diameter was 10 mm. A straight Roadrunner wire was passed into the biliary tree. A 5 mm biliary sphincterotomy was made with a monofilament traction (standard) sphincterotome using ERBE electrocautery. The sphincterotomy oozed blood. To discover objects, the biliary tree was swept with a 15 mm balloon starting at the bifurcation. Sludge was swept from the duct. All stones were removed. Dilation of the common bile duct with an 8-9-10 mm balloon (to a maximum balloon size of 10 mm) dilator was successful. One 10 Fr by 5 cm temporary stent was placed 5 cm into the common bile duct. Bile flowed through the stent. The stent was in good position. One 5 Fr by 7 cm temporary stent was placed 5 cm into the ventral pancreatic duct. Clear fluid flowed through the stent. The stent was in good position. Impression: - The entire main bile duct was moderately dilated, with a stone causing an obstruction. - Choledocholithiasis was found. Complete removal was accomplished by biliary sphincterotomy and balloon extraction. - A biliary sphincterotomy was performed. - The biliary tree was swept. - Common bile duct was successfully dilated. - One temporary stent was placed into the common bile duct. - One temporary stent was placed into the ventral pancreatic duct. Recommendation: Continue IV fluids at 250 cc an hour, clear liquid diet Procedure Code(s): --- Professional --- 93190, Endoscopic retrograde cholangiopancreatography (ERCP); with placement of endoscopic stent into biliary or pancreatic duct, including pre- and post-dilation and guide wire passage, when performed, including sphincterotomy, when performed, each stent [id number], 59, Endoscopic retrograde cholangiopancreatography (ERCP); with placement of endoscopic stent into biliary or pancreatic duct, including pre- and post-dilation and guide wire passage, when performed, including sphincterotomy, when performed, each stent [id number], Endoscopic retrograde cholangiopancreatography (ERCP); with removal of calculi/debris from biliary/pancreatic duct(s) 87225, 26, Endoscopic catheterization of the pancreatic ductal system, radiological supervision and interpretation CPT copyright 2017 [employer]. All rights reserved. The codes documented in this report are preliminary and upon early intervention specialist review may be revised to meet current compliance requirements. Dereck Lovelace DO 10/27/2022 6:18:32 PM This report has been signed electronically. Number of Addenda: 0 Note Initiated On: 10/27/2022 5:14 PM
--- NOTE | 2022-10-27 18:19 | OP.CCLET_ITS ---
10/27/2022 No Primary Care Physician Re : ERCP procedure for Kimberly Santos Dear Care Physician This procedure was performed on Thursday, October 27, 2022. My impressions and recommendations are as follows: Impressions : - The entire main bile duct was moderately dilated, with a stone causing an obstruction. - Choledocholithiasis was found. Complete removal was accomplished by biliary sphincterotomy and balloon extraction. - A biliary sphincterotomy was performed. - The biliary tree was swept. - Common bile duct was successfully dilated. - One temporary stent was placed into the common bile duct. - One temporary stent was placed into the ventral pancreatic duct. Recommendations : Continue IV fluids at 250 cc an hour, clear liquid diet My findings are described in the full procedure note, which is enclosed. If I can be of further assistance, please feel free to contact me at . Sincerely, Dereck Lovelace, 10/27/2022 6:18:32 PM This report has been signed electronically.
--- NOTE | 2022-10-27 18:25 | PCM.HOSP.N ---
Hospitalist Note Seen and examined earlier today, I talked to her mother who was in the room at the time my examination. Patient is taking Ozempic as an outpatient and the patient's mother attributes her pancreatitis to the Ozempic, I explained that we are going to have to rule out the presence of a stone causing the pancreatitis and I went through the ERCP procedure that she is going to have today with the patient and her mother.
[2022-10-27] MEDS: 0.9% Normal Saline 1,000 ML 250 ML IV ×2 (19:09→23:15)
[2022-10-27 23:31] LABS: Bedside Glucose 175 mg/dL (74-106)
[2022-10-28] MEDS: Morphine 2 MG/ML Syringe 4 MG IV (01:58)
[2022-10-28] MEDS: 0.9% Normal Saline 1,000 ML 250 ML IV ×3 (03:20→11:39)
[2022-10-28 04:39] VITALS: BP 140/80; PULSE 90; RESP 16; TEMP 36.9; O2SAT 95
[2022-10-28 06:35] LABS: Bedside Glucose 128 mg/dL (74-106)
[2022-10-28 07:43] VITALS: BP 149/96; PULSE 87; RESP 16; TEMP 37; O2SAT 94
[2022-10-28 10:20] VITALS: O2SAT 95
--- NOTE | 2022-10-28 11:36 | DCINST_ITS ---
Discharge Instructions Diet Discharge Diet: No restrictions Activity Discharge Activity: Return to Normal Activity Return to work on:: 10/30/22 Weight Bearing Status: Full weight bearing Follow Up Care Test Results: Test results from this visit will be discussed in further detail at your follow- up appointment, if applicable. Discharge Plan Admission Admit Date/Time: 10/27/22 02:22 Primary Reason for Your Visit: pancreatitis Attending Provider: Lamont Pinedo Primary Care Provider: Care Physician,No Primary Consulting Providers: Dereck Lovelace ; Trevon Chappell Discharge Orders/Prescriptions Prescriptions: Discontinued prednisone 10 MG tablet 10 mg PO UD Qty: 33 0RF Rx Instructions: Take 4 tablets daily for 3 days, then 3 daily for 3 days, then 2 daily for 3 days, then 1 a day for 3 days then 1 QOD for 3 doses. azithromycin 250 MG tablet 250 mg PO DAILY Qty: 4 0RF Referrals / Follow Up: Dereck Lovelace DO [Med Staff - Active Staff] - See Referral Note (in one month- call for appointment) Care Physician,Francesca Primary [Primary Care Provider] - Disposition Disposition (needs filled in before D/C Order can be placed): Home, Self Care
[2022-10-28 12:03] VITALS: BP 149/96; PULSE 87; RESP 16; TEMP 37; O2SAT 94
[2022-10-28 12:32] VITALS: BP 139/88; PULSE 84; RESP 16; TEMP 36.5; O2SAT 95
[2022-10-28] MEDS: levoFLOXacin 500 MG Tablet PO (12:48)
== END 2022-10-28 13:30 | disposition home or self-care (01) | DRG 444 ==
LOC: ED 10-27 01:01 → ICU 10-27 04:30 → MS3 10-27 21:01
PROVIDERS: Internal Medicine Gastroenterology; Admitting Provider Hospitalist; Emergency Provider Emergency Medicine; PCP Family Medicine; Visit Provider Internal Medicine
PROC: 0FC98ZZ Extirpation of Matter from Common Bile Duct, Via Natural or Artificial Opening Endoscopic (ICD-10-PCS; CPT 43260; principal; 2022-10-27 15:55)
DX: K80.51 Calculus of bile duct without cholangitis or cholecystitis with obstruction (principal); K85.90 Acute pancreatitis without necrosis or infection, unspecified; Z68.42 Body mass index [BMI] 45.0-49.9, adult; N30.00 Acute cystitis without hematuria; E66.01 Morbid (severe) obesity due to excess calories; E03.9 Hypothyroidism, unspecified; Z79.899 Other long term (current) drug therapy
CPT/HCPCS: 74177; 74330; 76000; 76705; 80048; 80053; 80061; 80076; 81001; 82962; 83690; 84703; 85025; 85610; 87086; 87088; 99281; J7030; J7120; Q9967; A4216; J2405

== ENCOUNTER → 2022-11-04 | Outpatient (CLI) | payer BC, SELFPAY ==
[2022-11-04 17:58] LABS: Amylase 115 U/L (25-115); Lipase 1139 U/L (73-393)
== END | disposition home or self-care (01) ==
LOC: MFPLAB 15:53
PROVIDERS: PCP Family Medicine; Referring Provider Family Medicine; Visit Provider Family Medicine
DX: K85.90 Acute pancreatitis without necrosis or infection, unspecified (principal)
CPT/HCPCS: 36415; 82150; 83690

== ENCOUNTER → 2022-11-11 | Outpatient (CLI) | payer BC, SELFPAY ==
[2022-11-11 18:02] LABS: Lipase 621 U/L (73-393)
== END | disposition home or self-care (01) ==
LOC: MFPLAB 16:08
PROVIDERS: PCP Family Medicine; Referring Provider Family Medicine; Visit Provider Family Medicine
DX: K85.90 Acute pancreatitis without necrosis or infection, unspecified (principal)
CPT/HCPCS: 36415; 83690

== ENCOUNTER → 2022-11-24 | Outpatient (CLI) | payer BC, SELFPAY ==
[2022-11-24 12:18] LABS: Hematocrit 41.5 % (37-47); Mean Corp Hgb Conc 31.3 g/dL (32-36); Mean Corpuscular Hgb 28.1 pg (27.0-32.0); Mean Corpuscular Volume 89.8 fL (81-99); Mean Platelet Vol. 13.1 fl (6.2-12.0); Platelet Count 217 K/mm3 (150-450); RBC Distribution Width CV 14.8 % (11.6-14.6); RBC Distribution Width SD 48.3 fl (35.1-43.9); Red Blood Count 4.62 M/mm3 (4.2-5.4); White Blood Count 4.6 K/mm3 (4.4-11.0)
[2022-11-24 13:17] LABS: Lipase 345 U/L (73-393)
== END | disposition home or self-care (01) ==
LOC: MFPLAB 09:58
PROVIDERS: Internal Medicine Pulmonary Disease; PCP Family Medicine; Referring Provider Family Medicine; Visit Provider Family Medicine
DX: R06.02 Shortness of breath (principal)
CPT/HCPCS: 36415; 83690; 85027

== ENCOUNTER 2023-01-27 10:50 | Day surgery (SDC) | payer BC, SELFPAY ==
--- NOTE | 2023-01-27 11:00 | RAD_ITS ---
CLINICAL HISTORY: Female, 32 years old. Stent pull. PROCEDURE: ERCP FLUOROSCOPY TIME (if supplied): 44.2 seconds. Exposure of 36.34 mGy. TECHNIQUE: Fluoroscopic guidance was provided during the performance of an ERCP. 6 images were performed during the procedure for documentation purposes. Please refer to the procedural report for further details. RAD/ERCP Biliary Only IMPRESSION: Fluoroscopy provided during an ERCP. Electronically Signed: Severo Church DO at 21:00 EDT ,
--- NOTE | 2023-01-27 11:08 | PCM.HP.BLA ---
History and Physical Date of Admission: 01/27/23 MARTIN LÓPEZ, is a 31 F who presents with abdominal pain.? It started in the midepigastric region radiating to the back around 3:00 yesterday afternoon.? It started mild and is slowly worsened.? It waxes and wanes a little bit but the trend is clearly toward worsening.? At first she thought it was a little bit more upper mid abdomen and the lower abdomen but now it seems to be more lower and leans more toward the right side.? She has never had back or flank pain.? She vomited once yesterday but has not had that issue today.? But she has only eaten 1 bit of toast today.? She denies any urinary symptoms such as frequency urgency.? She does note that her urine looks dark.? Ever since she has been on Ozempic for about a month her urine has been getting darker and darker.? ?Her last menstrual cycle was about 3 weeks ago normal timing.? She has no discharge or bleeding now.? She has had no prior abdominal surgery including no appendectomy or cholecystectomy.? No fever at home although she has felt hot her highest temperature measured was about 99. Patient is on metformin and Ozempic which she takes for prediabetes and for weight loss.? She reported that follow-up test showed that she had no prediabetes.? She reported beginning taking Ozempic at around since September 2022.? When she started Ozempic she has noticed that her urine tends very dark. Total Bilirubin 3.80 H,?Direct Bilirubin 2.51 H,?AST 160 H,?ALT 505 H,?Alkaline Phosphatase 201 H,?Total Protein 8.3 H, Albumin 3.7,?Globulin 4.6 H 10/26/22 23:10: Lipase 8531 H FINDINGS on ultrasound: Liver:? The liver is enlarged and measures 19 cm.? There is increased echogenicity consistent with fatty infiltration.? The bile ducts are within normal limits.? There is hepatic color flow.? The direction of portal flow is hepatopetal.? There is no demonstrated mass lesion. Gallbladder:? Normal distended gallbladder.? The gallbladder wall measures 3.8 mm.? There is a negative sonographic Phillips''s sign.? There is no pericholecystic fluid.? There are no gallstones. Common Bile Duct (C.B.D.): ? The common bile duct measures 8.9 mm. Pancreas: ? There is nonvisualization of the pancreas due to overlying bowel gas. Findings on CAT scan displayed only pancreatitis PFSH Medical History?(Updated 10/27/22 @ 16:[address] Harden Friend, DO) Hypothyroidism Home Medications azithromycin 250 mg tablet 250 mg PO DAILY #4 tabs 12/12/17 [Rx Last Taken Unknown] prednisone 10 mg tablet 10 mg PO UD #33 tabs 12/12/17 [Rx Last Taken Unknown] Allergy/AdvReac Type Severity Reaction Status Date / Time Penicillins Allergy ? Unknown Verified 10/26/22 23:08 Family History? no significant family his ? Surgical History? no surgical history ? Social History? Smoking Status:? Never smoker ROS ROS Narrative Pertinent positives and pertinent negatives as noted in HPI.? All other systems were reviewed and are negative Physical Exam Narrative Physical exam: General: Well-nourished, well-developed. Head: Normocephalic, atraumatic, no tenderness Eyes: Sclera icterus.? Vision is grossly intact. EOMI ENT, no trauma, moist mucous membranes, no rhinorrhea Neck: Nontender, No thyromegaly. CVS:? Regular rate and rhythm.? S1-S2 present.? No murmur, gallop or rub. Respiratory : clear to auscultation bilaterally, chest wall nontender, no wheezing Abdomen: Soft, nontender, nondistended, normal bowel sounds, no masses : Deferred Back: Nontender, no CVA tenderness, no midline spinal tenderness, deformities, step-offs Extremities: Nontender full range of motion, no trauma Skin: Sclerae icterus.? Normal color, no trauma, abrasions Neuro: Alert, oriented, cranial nerves II through XII grossly intact. Psychiatry: Normal mood.? Normal affect.? Not depressed.? Not anxious. Lab / Micro Data Result Diagrams: 10/27/22 04:15? 10/27/22 04:15? Labs: Laboratory Results - last 24 hr 10/26/22 23:10: WBC 14.9 H, RBC 5.19, Hgb 14.6, Hct 44.7, MCV 86.1, MCH 28.1, MCHC 32.7,?RDW Std Deviation 49.1 H,?RDW Coeff of Ilana 15.9 H, Plt Count 317,?MPV 12.8 H, Immature Gran % (Auto) 0.300,?Neut % (Auto) 87.6 H,?Lymph % (Auto) 8.2 L, Bollinger % (Auto) 3.7, Eos % (Auto) 0.1, Baso % (Auto) 0.1,?Absolute Neuts (auto) 13.1 H, Absolute Lymphs (auto) 1.23, Nucleated RBC % 0 10/26/22 23:10:?Sodium 137, Potassium 4.1, Chloride 103, Carbon Dioxide 22.0, Anion Gap 12, BUN 11, Creatinine 0.81, Estim Creat Clear Calc 88.89, Est GFR (MDRD) Af Amer 104, Est GFR (MDRD) Non-Af 86, BUN/Creatinine Ratio 13.5,?Glucose 175 H, Calcium 9.9 10/26/22 23:10:?Serum , Qual NEGATIVE 10/26/22 23:10: Total Bilirubin 3.80 H,?Direct Bilirubin 2.51 H,?AST 160 H,?ALT 505 H,?Alkaline Phosphatase 201 H,?Total Protein 8.3 H, Albumin 3.7,?Globulin 4.6 H 10/26/22 23:10: Lipase 8531 H 10/26/22 23:58:?Urine Color [place], Urine Clarity Cloudy, Urine pH 5.0, Ur Specific [place] 1.030,?Urine Protein 30 H, Urine Glucose (UA) Normal,?Urine Ketones 150 A*,?Urine Occult Blood 150 H,?Urine Nitrite Positive H,?Urine Bilirubin 6 H,?Urine Urobilinogen 4 H,?Ur Leukocyte Esterase 500 H, Urine RBC 0-5 SEEN, Urine WBC 50-100 SEEN, Ur Squamous Epith Cells 10-25 SEEN, Urine Bacteria 3+, Urine Mucus 0 SEEN 10/27/22 01:39:?PT 13.4, INR 1.0 10/27/22 04:15: WBC 15.3 H, RBC 4.94, Hgb 13.6, Hct 43.1, MCV 87.2, MCH 27.5,?MCHC 31.6 L,?RDW Std Deviation 50.2 H,?RDW Coeff of Ilana 16.0 H, Plt Count 285,?MPV 12.6 H, Immature Gran % (Auto) 0.400,?Neut % (Auto) 86.2 H,?Lymph % (Auto) 8.9 L, Bollinger % (Auto) 4.4, Eos % (Auto) 0.0, Baso % (Auto) 0.1,?Absolute Neuts (auto) 13.2 H, Absolute Lymphs (auto) 1.36, Nucleated RBC % 0 10/27/22 04:15: Sodium 134 L, Potassium 3.9, Chloride 102, Carbon Dioxide 24.0, Anion Gap 8, BUN 11, Creatinine 0.74, Estim Creat Clear Calc 97.30, Est GFR (MDRD) Af Amer 115, Est GFR (MDRD) Non-Af 95, BUN/Creatinine Ratio 14.8,?Glucose 145 H, Calcium 9.3,?Total Bilirubin 4.10 H,?AST 127 H,?ALT 420 H,?Alkaline Phosphatase 190 H, Total Protein 7.4, Albumin 3.3, Globulin 4.1,?Albumin/Globulin Ratio 0.8 L, Triglycerides 74,?Cholesterol 250 H,?LDL Cholesterol 188 H, VLDL Cholesterol 15, HDL Cholesterol 47 10/27/22 05:59: POC Glucose 154 H 10/27/22 12:50: POC Glucose 117 H Radiology Impression Abdomen/Pelvis CT? 10/27/22 00:01 IMPRESSION: ? Acute pancreatitis. ? Electronically Signed: Moisés Scanlon MD at 1:12 EST , ? Gallbladder Ultrasound? 10/27/22 05:55 IMPRESSION: Mild hepatomegaly and fatty infiltration of the liver. ? Electronically Signed: Balaji Wood MD at 12:56 EST , ? Assessment & Plan Assessment/Plan (1) Pancreatitis: (2) Morbid obesity with BMI of 45.0-49.9, adult: (3) Common bile duct dilatation: PLAN: Plan Acute pancreatitis Likely medication induced (Ozempic).? However she has a dilated duct and her bilirubin and alkaline phosphatase are still increasing.? That is consistent with likely choledocholithiasis.? Recommended diagnostic and therapeutic ERCP.? She was explained alternatives, risk, benefits including not withstanding posterior to be pancreatitis, perforation, bleeding and .? She gave verbal and written consent for the procedure. CBC showed white count of 14,900, trend.? CMP showed elevated liver biochemistry; and elevated bilirubin.? Trend CMP. Lipase level: 8,531. Hematocrit: 44.7 BUN:11 Abdomen/pelvis CT with acute pancreatitis.? Abdomen pelvis CT was independently interpreted and I agree with radiology interpretation. Lactated Ringer's at 250ml/hr Pain regimen: Received morphine 4 mg at the emergency department and continued on a as needed basis.? At emergency department. [] Ordered. Antiemetics: Received morphine 4 mg IV at the emergency department and continued on a as needed basis.? She underwent a ERCP and had multiple stones removed. She was also discovered to have a distal common bile duct stent. Stent was placed she comes back in for stent removal. I have examined the patient and the H&P has been reviewed. There are no clinical changes since date of exam.
--- NOTE | 2023-01-27 11:15 | EKG12_ITS ---
Test Reason : PRE-OP Blood Pressure : / mmHG Vent. Rate : 065 BPM Atrial Rate : 065 BPM P-R Int : 170 ms QRS Dur : 088 ms QT Int : 408 ms P-R-T Axes : 047 024 014 degrees QTc Int : 424 ms Normal sinus rhythm Normal ECG No previous ECGs available Confirmed by GORDY VEE, DIANNE ([id number]), pictures editor HOLLIE RAMAN ([id number]) on 02/02/2023 9:09:54 AM Referred By: Dereck Lovelace Confirmed By:DIANNE KAMINSKI MD
[2023-01-27 11:20] VITALS: BP 126/68; PULSE 70; RESP 20; TEMP 36.9; O2SAT 99; BMI 47.0
[2023-01-27 11:25] LABS: Internal QC Validated? YES +Cl - CLEAR BKGD; Pregnancy, Urine Negative Negative
[2023-01-27] MEDS: Lactated Ringers 1,000 ML 15 ML IV (11:33)
--- NOTE | 2023-01-27 12:59 | OP.ERCP_ITS ---
Patient Name: Kimberly Santos Procedure Date: 01/27/2023 11:32 AM Date of : 1990 Age: 32 Procedure: ERCP Indications: Biliary stent removal Providers: Dereck Lovelace DO Medicines: Monitored Anesthesia Care Patient Profile: This is a 32 year old female. Refer to note in patient chart for documentation of history and physical. Patient has symptoms of acute right upper quadrant abdominal pain. She is status post ERCP for stent and ERCP for stone removal within the past three months. She is status post laparoscopic cholecystectomy. Complications: No immediate complications. Procedure: Pre-Anesthesia Assessment: - Prior to the procedure, a History and Physical was performed, and patient medications and allergies were reviewed. The risks and benefits of the procedure and the sedation options and risks were discussed with the patient. All questions were answered and informed consent was obtained. Patient identification and proposed procedure were verified by the physician. Mental Status Examination: alert and oriented. Airway Examination: normal oropharyngeal airway and neck mobility. Respiratory Examination: clear to auscultation. Prophylactic Antibiotics: The patient does not require prophylactic antibiotics. Prior Anticoagulants: The patient has taken no previous anticoagulant or antiplatelet agents. ASA Grade Assessment: II - A patient with mild systemic disease. After reviewing the risks and benefits, the patient was deemed in satisfactory condition to undergo the procedure. The anesthesia plan was to use monitored anesthesia care (MAC). Immediately prior to administration of medications, the patient was re-assessed for adequacy to receive sedatives. The heart rate, respiratory rate, oxygen saturations, blood pressure, adequacy of pulmonary ventilation, and response to care were monitored throughout the procedure. The physical status of the patient was re-assessed after the procedure. After obtaining informed consent, the scope was passed under direct vision. Throughout the procedure, the patient's blood pressure, pulse, and oxygen saturations were monitored continuously. The Duodenoscope was introduced through the mouth, and advanced to the duodenum and used to inject contrast into the bile duct. The ERCP was accomplished without difficulty. The patient tolerated the procedure well. Scope In: 12:34:07 PM Scope Out: 12:46:35 PM Total Procedure Duration Time 0 hours 12 minutes 28 seconds Findings: A biliary stent was visible on the horticultural therapist film. The esophagus was successfully intubated under direct vision. The scope was advanced to a normal major papilla in the descending duodenum without detailed examination of the pharynx, larynx and associated structures, and upper GI tract. The upper GI tract was grossly normal. The bile duct was deeply cannulated with the short-nosed traction sphincterotome. Contrast was injected. I personally interpreted the bile duct images. There was brisk flow of contrast through the ducts. Image quality was excellent. Contrast extended to the entire biliary tree. Opacification of the main bile duct was successful. The maximum diameter of the ducts was 7 mm. The lower third of the main bile duct contained one stone, which was 6 mm in diameter. A straight Roadrunner wire was passed into the biliary tree. A 5 mm biliary sphincterotomy was made with a monofilament traction (standard) sphincterotome using ERBE electrocautery. There was no post-sphincterotomy bleeding. The biliary tree was swept with a 12 mm balloon starting at the bifurcation. Sludge was swept from the duct. All stones were removed. One stent was removed from the biliary tree using a Alejandra net. The stent was found to be partially occluded via the water column test. One stent was removed from the pancreatic duct using a Alejandra net. The stent was found to be occluded via the water column test. Impression: - Choledocholithiasis was found. Complete removal was accomplished by biliary sphincterotomy and balloon extraction. - A biliary sphincterotomy was performed. - The biliary tree was swept. - One stent was removed from the biliary tree. - One stent was removed from the pancreatic duct. Procedure Code(s): --- Professional --- 78585, Endoscopic retrograde cholangiopancreatography (ERCP); with removal of foreign body(s) or stent(s) from biliary/pancreatic duct(s) 15486, Endoscopic retrograde cholangiopancreatography (ERCP); with removal of calculi/debris from biliary/pancreatic duct(s) 98763, Endoscopic retrograde cholangiopancreatography (ERCP); with sphincterotomy/papillotomy 35029, 26, Endoscopic catheterization of the biliary ductal system, radiological supervision and interpretation CPT copyright 2017 [employer]. All rights reserved. The codes documented in this report are preliminary and upon veterinary bacteriologist review may be revised to meet current compliance requirements. Dereck Lovelace DO 01/27/2023 12:58:48 PM This report has been signed electronically. Number of Addenda: 0 Note Initiated On: 01/27/2023 11:32 AM
[2023-01-27 13:00] VITALS: BP 126/68; BP 136/75; PULSE 67; RESP 16; TEMP 36.3; O2SAT 100
--- NOTE | 2023-01-27 13:00 | OP.CCLET_ITS ---
01/27/2023 Aicha Reinoso [address] [place] [address] Re : ERCP procedure for Kimberly Santos Dear Dr. Reinoso This procedure was performed on Friday, January 27, 2023. My impressions and recommendations are as follows: Impressions : - Choledocholithiasis was found. Complete removal was accomplished by biliary sphincterotomy and balloon extraction. - A biliary sphincterotomy was performed. - The biliary tree was swept. - One stent was removed from the biliary tree. - One stent was removed from the pancreatic duct. Recommendations : My findings are described in the full procedure note, which is enclosed. If I can be of further assistance, please feel free to contact me at . Sincerely, Dereck Lovelace, 01/27/2023 12:58:48 PM This report has been signed electronically.
[2023-01-27 13:05] VITALS: BP 126/68; BP 132/83; PULSE 66; RESP 16; O2SAT 100
[2023-01-27 13:10] VITALS: BP 126/68; BP 131/75; PULSE 68; RESP 16; O2SAT 100
[2023-01-27 13:15] VITALS: BP 126/68; BP 133/80; PULSE 65; RESP 16; TEMP 36.6; O2SAT 99
[2023-01-27 13:40] VITALS: BP 126/68; BP 128/70; PULSE 70; RESP 18; TEMP 36.6; O2SAT 98
== END 2023-01-27 13:45 | disposition home or self-care (01) ==
LOC: EN 10:54 → AC 10:56
PROVIDERS: Anesthesiology; PCP Family Medicine; Referring Provider Internal Medicine Gastroenterology; Visit Provider Internal Medicine Gastroenterology
PROC: (CPT 43260; principal; 2023-01-27 11:40)
DX: Z46.59 Encounter for fitting and adjustment of other gastrointestinal appliance and device (principal); E66.01 Morbid (severe) obesity due to excess calories; Z68.42 Body mass index [BMI] 45.0-49.9, adult; K85.90 Acute pancreatitis without necrosis or infection, unspecified; K83.8 Other specified diseases of biliary tract; K80.50 Calculus of bile duct without cholangitis or cholecystitis without obstruction; K76.0 Fatty (change of) liver, not elsewhere classified; Z79.84 Long term (current) use of oral hypoglycemic drugs
CPT/HCPCS: 43262; 43264; 43275; 74328; 76000; 81025; 93005; J7120; J2405

== ENCOUNTER → 2023-02-19 | Outpatient (CLI) | payer BC, SELFPAY ==
[2023-02-19 10:57] LABS: Erythrocyte Sedimentation Rate 15 mm/hr (0-30)
[2023-02-19 11:14] LABS: Hemoglobin A1c 5.9 % (3.8-5.6)
[2023-02-19 11:25] LABS: Progesterone Level 1.09 ng/mL (See Comment)
[2023-02-19 11:54] LABS: Cholesterol 187 mg/dL (200); Estradiol 134.6 pg/mL; Ferritin 18 ng/mL (8-252); Follicle Stimulating Hormone 4.7 mIU/mL; Free T3 2.4 pg/mL (2.18-3.98); High Density Lipoprotein 44 mg/dL; Luteinizing Hormone 13.6 mIU/mL; Prolactin 14.4 ng/mL; Thyroid Stim Hormone (TSH) 2.55 uIU/mL (0.358-3.74)
[2023-02-24 22:07] LABS: Anti-Centromere B Ab <0.2 AI (0.0-0.9); Anti-Chromatin <0.2 AI (0.0-0.9); Anti-Jo <0.2 AI (0.0-0.9); Anti-Scleroderma-70 AB <0.2 AI (0.0-0.9); Anti-dsDNA Ab <1 IU/mL (0-9); Beef <0.10 kU/L (Class 0); Chocolate <0.10 kU/L (Class 0); Clam <0.10 kU/L (Class 0); Codfish <0.10 kU/L (Class 0); Corn <0.10 kU/L (Class 0); Egg, White <0.10 kU/L (Class 0); Egg, Whole <0.10 kU/L (Class 0); Milk (Cow) <0.10 kU/L (Class 0); Pork <0.10 kU/L (Class 0); RNP Ab <0.2 AI (0.0-0.9); SCALLOP <0.10 kU/L (Class 0); SESAME SEED 0.11 kU/L (Class 0/I); SJOGREN'S Anti-SS-A test < 0.2 AI (0.0-0.9); SJOGREN'S Anti-SS-B test < 0.2 AI (0.0-0.9); Shrimp <0.10 kU/L (Class 0); Smith Ab <0.2 AI (0.0-0.9); Soybean <0.10 kU/L (Class 0); Walnut, (Food) <0.10 kU/L (Class 0)
[2023-02-25 13:08] LABS: Cytoplasmic Ab (C-ANCA) <1:20 titer (Neg:<1:20); Growth Hormone 1.3 ng/mL (0.0-10.0); Immunoglobulin A 165 mg/dL (87-352); Immunoglobulin E 63 IU/mL (6-495); Immunoglobulin G 832 mg/dL (586-1602); Immunoglobulin M 152 mg/dL (26-217); Insulin Like Growth Factor 203 ng/mL (84-281); LDL, Direct 120295 123 mg/dL (0-99); Perinuclear Ab (P-ANCA) <1:20 titer (Neg:<1:20); Testosterone, % Free 2.24 % (0.50-2.80); Testosterone, Free 0.67 ng/dL (0.10-0.85); Testosterone, Total 30 ng/dL (8-60)
== END | disposition home or self-care (01) ==
LOC: LAB 10:20
PROVIDERS: PCP Family Medicine; Referring Provider Internal Medicine Gastroenterology; Visit Provider Internal Medicine Gastroenterology
DX: E66.01 Morbid (severe) obesity due to excess calories (principal); Z68.42 Body mass index [BMI] 45.0-49.9, adult
CPT/HCPCS: 36415; 82465; 82533; 82670; 82728; 82784; 82785; 83001; 83002; 83003; 83036; 83718; 83721; 84144; 84146; 84305; 84402; 84403; 84439; 84443; 84481; 85652; 86003; 86005; 86140; 86225; 86235; 86256

== ENCOUNTER 2023-03-02 15:25 | Inpatient (IN) | payer BC, SELFPAY ==
[2023-03-02 15:28] VITALS: BP 135/96; PULSE 98; RESP 14; TEMP 36.1; O2SAT 98; BMI 45.5
--- NOTE | 2023-03-02 17:16 | EKG12_ITS ---
Test Reason : CP Blood Pressure : / mmHG Vent. Rate : 082 BPM Atrial Rate : 082 BPM P-R Int : 152 ms QRS Dur : 086 ms QT Int : 360 ms P-R-T Axes : 053 016 018 degrees QTc Int : 420 ms Normal sinus rhythm Normal ECG Confirmed by GORDY VEE, DIANNE ([id number]), editor greeting card HOLLIE RAMAN ([id number]) on 03/03/2023 11:06:16 AM Referred By: Ferdinand Nieves Confirmed By:DIANNE KAMINSKI MD
--- NOTE | 2023-03-02 17:17 | EDS_ITS ---
HPI HPI - GI History of Present Illness Chief Complaint: Flank Pain Narrative Narrative: 32-year-old female presenting with 2 main complaints. Both started at the same time. She states she has left-sided pressure-like upper chest wall pain which started on Wednesday at the same time as right upper quadrant abdominal pain/right flank pain. The patient states that when she eats she gets nauseous but she has not vomited. She states she has a history of gallstone pancreatitis and had pancreatic stent placed by Dr. Lovelace. She also had a common bile duct stent. These were subsequently removed. Patient states this pain does not really feel the same. She describes a the pain from that is across her epigastrium radiating from right to left. No urinary symptoms. No fevers, chills. PFSH PFSH Medical History Hypothyroidism Low iron Non-smoker Prediabetes UTI (urinary tract infection) Wears contact lenses Home Medications ergocalciferol (vitamin D2) 1,250 mcg (50,000 unit) capsule (Vitamin D2) 1,250 mcg PO QWEEK 01/22/23 [History Last Taken Unknown] levothyroxine 200 mcg tablet (Synthroid) 200 mcg PO SUMOWEFR 01/22/23 [History Last Taken Unknown] loratadine 10 mg tablet (Claritin) 10 mg PO DAILY PRN ALLERGIES 01/22/23 [History Last Taken Unknown] metformin 500 mg tablet 1,500 mg PO QHS 01/22/23 [History Last Taken Unknown] Allergy/AdvReac Type Severity Reaction Status Date / Time Latex, Natural Rubber Allergy Rash Verified 03/02/23 15:26 Penicillins Allergy Unknown Verified 03/02/23 15:26 pineapple Allergy Food Verified 03/02/23 15:26 Allergy Surgical History History of ERCP Social History Smoking Status: Never smoker ROS ROS ED Constitutional Constitutional ED: Denies chills or fever(s) ENT ENT ED: Denies rhinorrhea or sore throat Cardiovascular Cardiovascular: Reports chest pain; Denies palpitations Respiratory/Chest Respiratory/Chest: Denies cough or dyspnea Gastrointestinal Gastrointestinal: Reports abdominal pain and nausea; Denies diarrhea or vomiting Genitourinary Genitourinary ED: Denies dysuria or hematuria Musculoskeletal Musculoskeletal: Denies arthralgias Integumentary Denies abscess Neurologic Neurologic: Denies headache(s) or paresthesias Psychiatric Psychiatric: Denies anxiety or depression EXAM Physical Exam Const Vital Signs: 03/02/23 15:28 03/02/23 18:18 Temperature 97 F L Temperature Source Temporal Pulse Rate 98 83 Respiratory Rate 14 23 H Blood Pressure 135/96 H 161/83 H Blood Pressure Mean 109 109 Pulse Ox 98 97 Oxygen Delivery Method Room Air Room Air Positive well nourished General Appearance ED: NAD; Negative for pallor HEENT Reports moist mucous membranes normocephalic Eyes PERRL Resp normal respiratory effort and clear to auscultation bilaterally Auscultation: Negative for rales, rhonchi or wheezes Cardio regular rate and regular rhythm GI GI Narrative: Tender in the right upper flank. Negative Phillips sign. Back/Spine no CVA tenderness Neuro CN's II-XII intact bilaterally Sensorium / Orientation: alert, oriented to person, oriented to place and joao ented to time Psych mental status grossly normal and thought process normal Skin no wounds General Skin Exam: Negative for jaundice or pallor MDM MDM MDM Narrative Medical decision making narrative: Patient presenting with right-sided abdominal pain. Differential includes acute cholecystitis, acute cholelithiasis, choledocholithiasis, gastritis, pancreatitis, colitis, kidney stone UTI, pyelonephritis. Patient recently treated for gallstone pancreatitis by Dr. Lovelace. The stents have now been removed. CBC was obtained to assess white blood cell count, hemoglobin, platelets. CMP to assess liver function, renal function, glucose, anion gap. Lipase to assess for pancreatitis urinalysis obtained to rule out occult blood or UTI. CBC shows a leukocytosis of 16.9. Hemoglobin hematocrit are stable. Platelets are normal. Liver function and lipase are normal. Urinalysis showed no evidence of infection and no occult blood. CT of the abdomen pelvis was obtained which shows acute cholecystitis. Discussed the case with Dr. Araujo who is on-call for general surgery. He recommended Cipro and Flagyl since the patient is penicillin allergic and he will admit the patient. He did recommend a right upper quadrant ultrasound which will be followed on the floor. I did call and the pharmacy technician infusion and this has been performed and is pending. Patient feeling better on reevaluation. Admitted in stable condition. Impression: 1. Acute cholecystitis Lab Data Attestation: I reviewed the patient's lab results. Labs: Laboratory Results - last 24 hr 03/02/23 03/02/23 17:40 18:30 WBC 16.9 H RBC 5.00 Hgb 14.3 Hct 43.5 MCV 87.0 MCH 28.6 MCHC 32.9 RDW Std Deviation 45.2 H RDW Coeff of Ilana 14.4 Plt Count 349 MPV 11.8 Immature Gran % (Auto) 0.300 Neut % (Auto) 82.3 H Lymph % (Auto) 10.4 L [place] % (Auto) 6.8 Eos % (Auto) 0.1 Baso % (Auto) 0.1 Absolute Neuts (auto) 13.9 H Absolute Lymphs (auto) 1.76 Nucleated RBC % 0 Sodium 134 L Potassium 4.7 Chloride 102 Carbon Dioxide 26.0 Anion Gap 6 BUN 7 Creatinine 0.78 Estim Creat Clear Calc 95.14 Est GFR (MDRD) Af Amer 108 Est GFR (MDRD) Non-Af 90 BUN/Creatinine Ratio 9.0 L Glucose 109 H Calcium 9.4 Total Bilirubin 0.60 AST 21 ALT 23 Alkaline Phosphatase 73 Troponin I High Sens < 3 L Total Protein 8.4 H Albumin 3.7 Globulin 4.7 H Albumin/Globulin Ratio 0.8 L Lipase 28 Serum , Qual NEGATIVE Urine Color Yellow Urine Clarity Sl. Cloudy Urine pH 5.0 Ur Specific [place] 1.015 Urine Protein Negative Urine Glucose (UA) Normal Urine Ketones 50 H Urine Occult Blood 250 H Urine Nitrite Negative Urine Bilirubin Negative Urine Urobilinogen Normal Ur Leukocyte Esterase 25 H Urine RBC 25-50 SEEN Urine WBC 0-5 SEEN Ur Squamous Epith Cells 0-5 SEEN Urine Bacteria 0 SEEN Urine Mucus 0 SEEN Radiography Diagnostic Testing: Clinical Impression(s) from Imaging Studies Abdomen/Pelvis CT 03/02/23 18:32 IMPRESSION: Suspect acute cholecystitis. Correlation with right lower quadrant ultrasound is recommended. Electronically Signed: Scott Robin MD at 20:29 EDT , Discharge Plan Triage Chief Complaint: Flank Pain ED Provider: Richy Carmona Dx/Rx/DC Orders Primary Care Provider: Aicha Reinoso
[2023-03-02] MEDS: 0.9% Normal Saline 1,000 ML 1000 ML IV (17:35)
[2023-03-02] MEDS: Ondansetron 4 MG/2 ML Vial IV (17:36)
[2023-03-02] MEDS: Morphine 4 MG/ML Syringe IV (17:36)
[2023-03-02 17:51] LABS: Absolute Lymphocyte Count 1.76 X10^3/uL (0.83-4.51); Absolute Neutrophil Count 13.9 X10^3/uL (2.0-7.7); Basophil# 0.01 X10^3/uL; Basophil% 0.1 % (0-1); Eosinophil# 0.02 X10^3/uL; Eosinophils% 0.1 % (0-5); Hematocrit 43.5 % (37-47); Hemoglobin 14.3 g/dL (12.0-15.0); Lymphocyte # 1.76 X10^3/ul (0.83-4.51); Lymphocyte % 10.4 % (19-41); Mean Corp Hgb Conc 32.9 g/dL (32-36); Mean Corpuscular Hgb 28.6 pg (27.0-32.0); Mean Platelet Vol. 11.8 fl (6.2-12.0); Monocyte# 1.14 X10^3/uL; Monocyte% 6.8 % (0-10); NRBC Flagged by Analyzer 0 % (0-5); Neutrophil # 13.88 X10^3/uL (2.7-7.7); Neutrophil % 82.3 % (47-70); Platelet Count 349 K/mm3 (150-450); RBC Distribution Width CV 14.4 % (11.6-14.6); RBC Distribution Width SD 45.2 fl (35.1-43.9); White Blood Count 16.9 K/mm3 (4.4-11.0)
[2023-03-02 18:18] VITALS: BP 161/83; PULSE 83; RESP 23; O2SAT 97
[2023-03-02 18:18] LABS: Internal QC Validated? YES +Cl - CLEAR BKGD; Pregnancy, Serum, hCG Quali. NEGATIVE Negative
[2023-03-02 18:20] LABS: ALB/GLOB Ratio 0.8 RATIO (0.9-2.4); AST(SGOT) 21 U/L (15-37); Alanine Aminotransfer ALT/SGPT 23 U/L (13-56); Albumin, Serum 3.7 g/dL (3.2-5.0); Alkaline Phosphatase 73 U/L (45-117); Anion Gap 6 (5-15); BUN 7 mg/dL (7-18); Calcium,Total 9.4 mg/dL (8.5-10.1); Chloride 102 mmol/L (98-107); Creatinine, Serum 0.78 mg/dL (0.55-1.02); EST Glomerular Filtration Rate 90 mL/min (>60); Est Glom Filt Rate - Afr Amer 108 mL/min (>60); Estimated Creatinine Clearance 95.14 ml/min; Globulin 4.7 g/dL (2.2-4.2); Glucose 109 mg/dL (74-106); Lipase 28 U/L (13-75); Potassium 4.7 mmol/L (3.5-5.1); Protein, Total 8.4 g/dL (6.4-8.2); Sodium Level 134 mmol/L (136-145); Troponin-I HS < 3 pg/mL (3.0-54.0)
--- NOTE | 2023-03-02 18:32 | CT_ITS ---
STUDY: CT ABDOMEN AND PELVIS WITH CONTRAST REASON FOR EXAM: Female, 32 years old. right sided abdominal pain RADIATION DOSAGE (If Supplied By Facility): CTDIvol = ( 29.07 ) mGy, DLP = ( 1983.11 ) mGycm TECHNIQUE: Transaxial images were obtained from the dome of the diaphragm to the symphysis pubis without oral contrast. IV 100mL Isovue-370 was administered. Sagittal and coronal images were reconstructed. Individualized dose optimization techniques were used for this CT. COMPARISON: 10/27/2022 FINDINGS: The visualized lung bases are unremarkable. The visualized portions of the heart are within normal limits. Normal liver. Gallbladder wall thickening with stranding of surrounding fat worrisome for acute cholecystitis. Correlation with right upper quadrant ultrasound is recommended. Normal spleen. Normal pancreas. Normal bilateral adrenal glands. Normal right kidney. Normal left kidney. Normal visualized stomach. Normal small intestine. Normal colon. The appendix is visualized and appears normal. Normal abdominal aorta. Normal inferior vena cava. Normal retroperitoneum. Normal urinary bladder. There is a small umbilical hernia containing fat. Normal osseous structures. CT/Abdomen/Pelvis W IV Cont ONLY IMPRESSION: Suspect acute cholecystitis. Correlation with right lower quadrant ultrasound is recommended. Electronically Signed: Scott Robin MD at 20:29 EDT ,
[2023-03-02 18:36] LABS: Bacteria 0 SEEN /hpf (None Seen); Mucous, Urine 0 SEEN /hpf (<or=2+)
[2023-03-02 18:37] LABS: Color, Urine Yellow (Yellow); Glucose, Dipstick Normal (Normal); Ketone-Dipstick 50 mg/dl (Negative); Leukocyte Esterase-Dipstick 25 /ul (Negative); Nitrite-Dipstick Negative (Negative); Occult Blood-Urine 250 /ul (Negative); Protein-Dipstick Negative (Negative); Specific Gravity, Urine 1.015 (1.002-1.030); Urine Bilirubin Dipstick Negative (Negative); Urine Clarity Sl. Cloudy (Clear); Urine Urobilinogen Normal (Normal)
[2023-03-02 18:44] LABS: Red Blood Cells-Urine 25-50 SEEN /hpf (0-5); Squamous Epithelial Cells - UA 0-5 SEEN /hpf (5-10); White Blood Cells 0-5 SEEN /hpf (0-5)
[2023-03-02] MEDS: HYDROmorphone 0.5 MG/0.5 ML SYRINGE IV (19:14)
--- NOTE | 2023-03-02 21:35 | US_ITS ---
STUDY: ABDOMINAL ULTRASOUND - RIGHT UPPER QUADRANT REASON FOR VISIT: Female, 32 years old ruq pain TECHNIQUE: Ultrasound evaluation of the right upper quadrant was performed with real-time and static porras-scale imaging. TECHNICAL QUALITY: Adequate. COMPARISON: 10/27/2022, CT earlier today FINDINGS: Liver: The liver measures 19.5 cm. There is increased echogenicity consistent with fatty infiltration. The bile ducts are within normal limits. There is hepatic color flow. The direction of portal flow is hepatopetal. There is no demonstrated mass lesion. Gallbladder: Normal distended gallbladder. The gallbladder wall measures 4 mm. There is a negative sonographic Phillips''s sign. There is no pericholecystic fluid. There are multiple echogenic structures within the gallbladder, consistent with multiple gallstones. Common Bile Duct (C.B.D.): The common bile duct measures 7 mm. Pancreas: Normal size of the head, body and tail of the pancreas. There is normal echogenicity of the pancreas. There is no demonstrated pancreatic mass or cyst. Right Kidney: Normal size of the right kidney. The right kidney measures 12.9 cm. Normal renal cortex. The right cortex measures 2.5 cm. There is no demonstrated renal mass or cyst. There is no right hydronephrosis. US/Gallbladder IMPRESSION: Suspect acute cholecystitis with cholelithiasis and gallbladder wall thickening. Mild extrahepatic biliary ductal dilatation worrisome for choledocholithiasis. MRCP would be useful. Electronically Signed: Scott Robin MD at 23:32 EDT ,
--- NOTE | 2023-03-02 21:48 | HP.PCM.SX_ITS ---
HPI - General HPI Narrative MARTIN LÓPEZ, is a 32 F who presents with right-sided pain. The patient had ERCP earlier this year with placement of stent and removal of common duct stone. Patient says the pain has been going on for 3 days. She has nausea but no vomiting. Denies fevers or chills. [facility] Medical History Hypothyroidism Low iron Non-smoker Prediabetes UTI (urinary tract infection) Wears contact lenses Home Medications ergocalciferol (vitamin D2) 1,250 mcg (50,000 unit) capsule (Vitamin D2) 1,250 mcg PO QWEEK 01/22/23 [History Last Taken Unknown] levothyroxine 200 mcg tablet (Synthroid) 200 mcg PO SUMOWEFR 01/22/23 [History Last Taken Unknown] loratadine 10 mg tablet (Claritin) 10 mg PO DAILY PRN ALLERGIES 01/22/23 [History Last Taken Unknown] metformin 500 mg tablet 1,500 mg PO QHS 01/22/23 [History Last Taken Unknown] Allergy/AdvReac Type Severity Reaction Status Date / Time Latex, Natural Rubber Allergy Rash Verified 03/02/23 15:26 Penicillins Allergy Unknown Verified 03/02/23 15:26 pineapple Allergy Food Verified 03/02/23 15:26 Allergy Surgical History History of ERCP Social History Smoking Status: Never smoker ROS Constitutional Constitutional: Denies anorexia, chills, fatigue or fever(s) Eyes Eyes: Denies blurry vision ENT HEENT: Denies abnormal hearing Cardiovascular Cardiovascular: Denies chest pain or chest pain at rest Respiratory/Chest Respiratory/Chest: Denies cough or dyspnea Gastrointestinal Gastrointestinal: Reports abdominal pain and nausea; Denies diarrhea, dysphagia or vomiting Genitourinary Genitourinary: Denies change in urinary stream Musculoskeletal Musculoskeletal: Denies abnormal gait Integumentary Integumentary: Denies jaundice Neurologic Neurologic: Denies abnormal gait Psychiatric Psychiatric: Denies anxiety Endocrine Endocrinology: Denies flushing Hematologic/Lymphatic Hematologic/Lymphatic: Denies easy bleeding Vital Signs Vital Signs Vital Signs: 03/02/23 15:28 03/02/23 18:18 Temperature 97 F L Temperature Source Temporal Pulse Rate 98 83 Respiratory Rate 14 23 H Blood Pressure 135/96 H 161/83 H Blood Pressure Mean 109 109 Pulse Ox 98 97 Oxygen Delivery Method Room Air Room Air Weight Weight: 282 lb 1.6 oz Body Mass Index (BMI) 45.5 Physical Exam Const oriented x3 Resp normal respiratory effort Cardio regular rate and regular rhythm GI soft to palpation Palpation: tender RUQ Extremity normal to inspection Results Lab / Micro Data 03/02/23 17:40 03/02/23 17:40 Labs: Laboratory Results - last 24 hr 03/02/23 17:40: WBC 16.9 H, RBC 5.00, Hgb 14.3, Hct 43.5, MCV 87.0, MCH 28.6, MCHC 32.9, RDW Std Deviation 45.2 H, RDW Coeff of Ilana 14.4, Plt Count 349, MPV 11.8, Immature Gran % (Auto) 0.300, Neut % (Auto) 82.3 H, Lymph % (Auto) 10.4 L, [place] % (Auto) 6.8, Eos % (Auto) 0.1, Baso % (Auto) 0.1, Absolute Neuts (auto) 13.9 H, Absolute Lymphs (auto) 1.76, Nucleated RBC % 0, Sodium 134 L, Potassium 4.7, Chloride 102, Carbon Dioxide 26.0, Anion Gap 6, BUN 7, Creatinine 0.78, Estim Creat Clear Calc 95.14, Est GFR (MDRD) Af Amer 108, Est GFR (MDRD) Non-Af 90, BUN/Creatinine Ratio 9.0 L, Glucose 109 H, Calcium 9.4, Total Bilirubin 0.60, AST 21, ALT 23, Alkaline Phosphatase 73, Troponin I High Sens < 3 L, Total Protein 8.4 H, Albumin 3.7, Globulin 4.7 H, Albumin/Globulin Ratio 0.8 L, Lipase 28, Serum , Qual NEGATIVE 03/02/23 18:30: Urine Color Yellow, Urine Clarity Sl. Cloudy, Urine pH 5.0, Ur Specific [place] 1.015, Urine Protein Negative, Urine Glucose (UA) Normal, Urine Ketones 50 H, Urine Occult Blood 250 H, Urine Nitrite Negative, Urine Bilirubin Negative, Urine Urobilinogen Normal, Ur Leukocyte Esterase 25 H, Urine RBC 25-50 SEEN, Urine WBC 0-5 SEEN, Ur Squamous Epith Cells 0-5 SEEN, Urine Bacteria 0 SEEN, Urine Mucus 0 SEEN Radiology Impression Abdomen/Pelvis CT 03/02/23 18:32 IMPRESSION: Suspect acute cholecystitis. Correlation with right lower quadrant ultrasound is recommended. Electronically Signed: Scott Robin MD at 20:29 EDT , Assessment & Plan Assessment/Plan (1) Acute cholecystitis: PLAN: The patient has having right-sided abdominal pain. Her CT shows acute cholecystitis with inflammation around her gallbladder. I discussed laparoscopic cholecystectomy with her. I discussed the procedure in detail with the patient. I discussed the risks, benefits, and alternatives of the procedure. I discussed the risks including but not limited to bleeding, infection, injury to surrounding organs such as the liver, bile duct, bowels. I did discuss the possibility of having to convert to an open procedure as well as the possibility that if any injuries occurred this may necessitate further surgery at a tertiary care center. I will admit the patient tonight and keep her n.p.o. on IV fluids and start antibiotics and plan for surgery tomorrow afternoon. Ferdinand Nieves MD Pager: [facility] [address] [place] [address], [address] [place] [address] Office:
[2023-03-02] MEDS: metroNIDAZOLE 500 MG/100 ML BAG 100 MG IV (22:26)
[2023-03-02] MEDS: Ciprofloxacin 500 MG Tablet PO (22:26)
[2023-03-02] MEDS: 0.9% Normal Saline 1,000 ML 999 ML IV (22:28)
[2023-03-02 23:00] VITALS: BP 122/64; PULSE 70; RESP 18; TEMP 36.6; O2SAT 95
[2023-03-02 23:26] VITALS: BMI 43.0
[2023-03-02 23:35] VITALS: BP 158/80; PULSE 75; RESP 18; TEMP 36.4; O2SAT 99
[2023-03-02] MEDS: 0.9% Normal Saline 1,000 ML 100 ML IV (23:48)
[2023-03-03] VITALS (14 sets, daily range): BP systolic 120–141; BP diastolic 75–98; PULSE 69–88; RESP 16–18; TEMP 36.4–36.9; O2SAT 93–100; BMI 51.8
[2023-03-03] MEDS: 0.9% Saline Lock 10 ML Syringe IV ×2 (00:08→06:12)
[2023-03-03] MEDS: Morphine 2 MG/ML Syringe IV ×4 (00:08→19:28)
--- NOTE | 2023-03-03 05:55 | EKG12_ITS ---
Test Reason : AM EKG Blood Pressure : / mmHG Vent. Rate : 081 BPM Atrial Rate : 081 BPM P-R Int : 134 ms QRS Dur : 090 ms QT Int : 376 ms P-R-T Axes : 018 017 004 degrees QTc Int : 436 ms Normal sinus rhythm Nonspecific ST abnormality Abnormal ECG When compared with ECG of 02-MAR-2023 15:33, MANUAL COMPARISON REQUIRED, DATA IS UNCONFIRMED Confirmed by GORDY VEE, DIANNE ([id number]), sound editor HOLLIE RAMAN ([id number]) on 03/09/2023 12:28:12 PM Referred By: Ferdinand Nieves Confirmed By:DIANNE KAMINSKI MD
[2023-03-03 06:22] LABS: Absolute Lymphocyte Count 1.71 X10^3/uL (0.83-4.51); Basophil# 0.01 X10^3/uL; Basophil% 0.1 % (0-1); Eosinophil# 0.01 X10^3/uL; Eosinophils% 0.1 % (0-5); Hematocrit 40.3 % (37-47); Hemoglobin 12.5 g/dL (12.0-15.0); Lymphocyte # 1.71 X10^3/ul (0.83-4.51); Lymphocyte % 11.5 % (19-41); Mean Corpuscular Volume 90.2 fL (81-99); Mean Platelet Vol. 11.7 fl (6.2-12.0); Monocyte# 1.08 X10^3/uL; Monocyte% 7.3 % (0-10); NRBC Flagged by Analyzer 0 % (0-5); Neutrophil # 11.99 X10^3/uL (2.7-7.7); Neutrophil % 80.7 % (47-70); Platelet Count 245 K/mm3 (150-450); RBC Distribution Width CV 14.6 % (11.6-14.6); RBC Distribution Width SD 47.9 fl (35.1-43.9); Red Blood Count 4.47 M/mm3 (4.2-5.4); White Blood Count 14.9 K/mm3 (4.4-11.0)
[2023-03-03 06:58] LABS: ALB/GLOB Ratio 0.7 RATIO (0.9-2.4); AST(SGOT) 9 U/L (15-37); Alanine Aminotransfer ALT/SGPT 16 U/L (13-56); Albumin, Serum 2.8 g/dL (3.2-5.0); Alkaline Phosphatase 87 U/L (45-117); Anion Gap 7 (5-15); BUN 6 mg/dL (7-18); BUN/Creat Ratio 10.5 RATIO (10-20); Calcium,Total 8.5 mg/dL (8.5-10.1); Chloride 107 mmol/L (98-107); Creatinine, Serum 0.57 mg/dL (0.55-1.02); EST Glomerular Filtration Rate 128 mL/min (>60); Est Glom Filt Rate - Afr Amer 155 mL/min (>60); Estimated Creatinine Clearance 130.19 ml/min; Globulin 4.3 g/dL (2.2-4.2); Glucose 102 mg/dL (74-106); Lipase 19 U/L (13-75); Potassium 3.9 mmol/L (3.5-5.1); Protein, Total 7.1 g/dL (6.4-8.2); Sodium Level 136 mmol/L (136-145)
[2023-03-03 07:03] LABS: Thyroid Stim Hormone (TSH) 2.19 uIU/mL (0.358-3.74)
--- NOTE | 2023-03-03 07:57 | PN.SURG_ITS ---
Subjective Subjective Patient reports she is still having some abdominal discomfort. Objective Data Objective Data Vital Signs: Vital Signs Temp Pulse Resp BP Pulse Ox O2 Del Method 97.7 F L 88 18 139/98 H 95 Room Air 03/03/23 06:02 03/03/23 06:02 03/03/23 06:02 03/03/23 06:02 03/03/23 06:02 03/03/23 06:02 Oxygen Delivery Method Room Air Weight: 266 lb 5.094 oz Body Mass Index (BMI) 43.0 Intake & Output: Intake and Output for Last 24 Hours 03/01/23 03/02/23 03/03/23 23:59 23:59 23:59 Intake Total 2110.67 / 2110. Balance 2110. / 2110. Lab / Micro Data 03/03/23 05:43 03/03/23 05:43 Labs: Laboratory Results - last 24 hr 03/02/23 17:40: WBC 16.9 H, RBC 5.00, Hgb 14.3, Hct 43.5, MCV 87.0, MCH 28.6, MCHC 32.9, RDW Std Deviation 45.2 H, RDW Coeff of Ilana 14.4, Plt Count 349, MPV 11.8, Immature Gran % (Auto) 0.300, Neut % (Auto) 82.3 H, Lymph % (Auto) 10.4 L, [place] % (Auto) 6.8, Eos % (Auto) 0.1, Baso % (Auto) 0.1, Absolute Neuts (auto) 13.9 H, Absolute Lymphs (auto) 1.76, Nucleated RBC % 0, Sodium 134 L, Potassium 4.7, Chloride 102, Carbon Dioxide 26.0, Anion Gap 6, BUN 7, Creatinine 0.78, Estim Creat Clear Calc 95.14, Est GFR (MDRD) Af Amer 108, Est GFR (MDRD) Non-Af 90, BUN/Creatinine Ratio 9.0 L, Glucose 109 H, Calcium 9.4, Total Bilirubin 0.60, AST 21, ALT 23, Alkaline Phosphatase 73, Troponin I High Sens < 3 L, Total Protein 8.4 H, Albumin 3.7, Globulin 4.7 H, Albumin/Globulin Ratio 0.8 L, Lipase 28, Serum , Qual NEGATIVE 03/02/23 18:30: Urine Color Yellow, Urine Clarity Sl. Cloudy, Urine pH 5.0, Ur Specific [place] 1.015, Urine Protein Negative, Urine Glucose (UA) Normal, Urine Ketones 50 H, Urine Occult Blood 250 H, Urine Nitrite Negative, Urine Bilirubin Negative, Urine Urobilinogen Normal, Ur Leukocyte Esterase 25 H, Urine RBC 25-50 SEEN, Urine WBC 0-5 SEEN, Ur Squamous Epith Cells 0-5 SEEN, Urine Bacteria 0 SEEN, Urine Mucus 0 SEEN 03/03/23 05:43: WBC 14.9 H, RBC 4.47, Hgb 12.5, Hct 40.3, MCV 90.2, MCH 28.0, MCHC 31.0 L D, RDW Std Deviation 47.9 H, RDW Coeff of Ilana 14.6, Plt Count 245, MPV 11.7, Immature Gran % (Auto) 0.300, Neut % (Auto) 80.7 H, Lymph % (Auto) 11.5 L, [place] % (Auto) 7.3, Eos % (Auto) 0.1, Baso % (Auto) 0.1, Absolute Neuts (auto) 12.0 H, Absolute Lymphs (auto) 1.71, Nucleated RBC % 0, Sodium 136, Potassium 3.9, Chloride 107, Carbon Dioxide 22.0, Anion Gap 7, BUN 6 L, Creatinine 0.57, Estim Creat Clear Calc 130.19, Est GFR (MDRD) Af Amer 155, Est GFR (MDRD) Non-Af 128, BUN/Creatinine Ratio 10.5, Glucose 102, Calcium 8.5, Total Bilirubin 0.60, AST 9 L, ALT 16, Alkaline Phosphatase 87, Total Protein 7.1, Albumin 2.8 L, Globulin 4.3 H, Albumin/Globulin Ratio 0.7 L, Lipase 19, TSH 2.19 Radiography Diagnostic Testing: Radiology Impression Abdomen/Pelvis CT 03/02/23 18:32 IMPRESSION: Suspect acute cholecystitis. Correlation with right lower quadrant ultrasound is recommended. Electronically Signed: Scott Robin MD at 20:29 EDT , Gallbladder Ultrasound 03/02/23 21:35 IMPRESSION: Suspect acute cholecystitis with cholelithiasis and gallbladder wall thickening. Mild extrahepatic biliary ductal dilatation worrisome for choledocholithiasis. MRCP would be useful. Electronically Signed: Scott Robin MD at 23:32 EDT , Physical Exam Const oriented x3 and no apparent distress Resp normal respiratory effort GI soft to palpation Palpation: tender RUQ Assessment & Plan Assessment/Plan (1) Acute cholecystitis: PLAN: Patient reports some improvement in her pain. Plan for laparoscopic cholecystectomy this afternoon. Patient's questions were answered. Continue antibiotics Ferdinand Nieves MD Pager: [facility] [address] [place] [address], [address] [place] [address] Office:
[2023-03-03] MEDS: metroNIDAZOLE 500 MG/100 ML BAG 100 MG IV ×3 (08:26→22:48)
--- NOTE | 2023-03-03 09:40 | CASEMGMT ---
DESTINY LEVY Discharge Planning Assessment: Face to Face with patient for initial transition planning/care coordination assessment. DESTINY LEVY introduced self and role at [facility], pt voices understanding and is agreeable to participating in assessment with mother at bedside. Pt alert and answering questions appropriately. Care providers, pharmacy, and demographics verified. Admitting dx: acute cholecystitis PCP: [facility] Specialists: [place] (GI)Severiano (plumber's assistant) Preferred Pharmacy: [facility] Insurance: [employer] Prescription Benefit: yes LNOK: parents Chantel and Rehan Santos Living Arrangements: Pt resides in a two story home with her parents. Pt states she is independent with ADLs and IADLs. Transportation: Pt drives and denies any transportation concerns DME/HHC/SNF: denies Plan: Home with family support. Pt denies any discharge needs at this time. Will continue to monitor and assist with discharge needs as identified. Jorge Singh RN CM
[2023-03-03] MEDS: Ciprofloxacin 400 MG/200 ML BAG 200 MG IV ×2 (10:08→21:31)
[2023-03-03] MEDS: 0.9% Normal Saline 1,000 ML 100 ML IV ×2 (12:19→17:53)
--- NOTE | 2023-03-03 13:47 | CHAPLAIN ---
Type of Pastoral Visit ___ Initial Visit ___ Follow-up Visit ___ On-call Visit ___ General Patient Visit ___ Spiritual Assessment ___ Family Conference ___ Bereavement ___ Rapid Response ___ Code Blue ___ Other (describe below) Pastoral Care Referral From ___ Patient ___ Family ___ Nurse ___ Physician ___ Informatics Coordinator ___ Inside Trucker ___ Other (describe below) Sacrament/Intervention ___ Active listening ___ Anointing ___ Roman Catholic ___ Bereavement ___ Communion ___ Kaye exploration ___ ___ Life review ___ Prayer ___ Reconciliation ___ Sacrament of Sick ___ Supportive presence ___ Wedding ___ Other (describe below) Pastoral Comments Patient and bed are out of the room; left a calling card
--- NOTE | 2023-03-03 14:40 | GALL_PTH ---
PATIENT: MARTIN LÓPEZ LOC: MS3 U#:[id number] AGE/SX: 32/F ROOM: [facility]/02/[address]: Dr. Ferdinand Nieves MD : [id number] BED: 1 DIS: 03/05/2023 SPEC #: [id number] RECD: 03/03/23 16:58 STATUS: [place] #: [id number] CRISTEL: 03/03/23 14:[address]: Ferdinand Nieves DEPT: SURGICAL PATHOLOGY RECD BY: Chari Bobby ENTERED: 03/04/23 08:13 SP TYPE: MICHA PRESCOTT DR: Dr. Aicha Reinoso MD Tissues: Gallbladder, NOS Procedures: Surgery Specimen Level III HEADER OPERATION: Laparoscopic cholecystectomy PRE-OP DIAGNOSIS: Acute cholecystitis TISSUE SUBMITTED: Gallbladder MICROSCOPIC DIAGNOSIS Gallbladder, cholecystectomy: Acute and chronic ulcerated cholecystitis and cholelithiasis. A benign pericystic lymph node with reactive changes. DIAN:martha 03/05/2023 MICROSCOPIC DESCRIPTION Slides are reviewed. GROSS DESCRIPTION Received is one container labeled with the patient's name and designated gallbladder. The specimen consists of a gallbladder measuring 9.0 x 5.0 x 1.0 cm. The external surface is smooth and glistening. Focally, it is granular, hemorrhagic and contains cautery artifact. The lumen of the gallbladder contains light david bile and multiple mulberry-shaped yellow calculi ranging in size from 0.1 to 0.5 cm in greatest dimension. The mucosa is free of mass lesions. The gallbladder wall averages 0.3 cm in thickness. A pericystic nodule resembling lymph node is present measuring 1.6 cm in greatest dimension. Bioinformatics Research Technician sections of the gallbladder and pericystic nodule are submitted in onewo cassettes. / AM:martha 03/04/2023 TC:2 CPT: 92646
[2023-03-03] MEDS: Bupivacaine 0.25% 30 ML Vial (15:25)
--- NOTE | 2023-03-03 15:41 | PCM.OPRPT ---
Report of Operation Date of Procedure: 03/03/23 Pre-Operative Diagnosis: Acute cholecystitis Post-Operative Diagnosis: Acute cholecystitis Surgery/Procedure Performed:: Laparoscopic cholecystectomy Description of Surgical Findings:: Very inflamed gallbladder Specimen's removed: Gallbladder Estimated Blood Loss (mL): 300 Description of Procedure: Patient was brought back to the operating room and general anesthesia was induced. The abdomen was prepped and draped in usual sterile fashion. A midline incision was made superior to the umbilicus. Using Visiport technique a 5 mm port was used to access the abdomen. The abdomen was then insufflated 15 mmHg. The camera was inserted to the abdomen and there were no injuries from entry. Next in the epigastric region a 5 mm port was placed. Through this port the camera was placed and the inferior port was upsized to a 12 mm port. Next under direct visualization a right subcostal 5 mm port was placed as well as a more medial right subcostal 5 mm port. Patient was placed into steep reverse Trendelenburg position. The patient had a very large colon that was very distended. She also had a lot of intra-abdominal fat. The gallbladder was very inflamed and the fat was peeled from the gallbladder rind. The gallbladder was elevated to the right shoulder. The gallbladder was very thick walled. I was unable to see the infundibular area due to the colon and the intra-abdominal fat. Another 5 mm port was placed in the midline and this was used to reflect the fat downward. The infundibulum was dissected free and the cystic duct was identified. Due to the restricted mobility I was unable to complete cholangiograms. The cystic duct was clipped and divided. Cystic artery was identified and clipped and divided as well. Next the attachments to the gallbladder fossa were taken down. There was significant edema and inflammation in the gallbladder fossa. After the gallbladder was removed there was significant bleeding in the gallbladder bed. The gallbladder was placed into a bag and removed through the umbilical incision. The port was placed back into the mid line incision. A Ray-Thu was placed into the abdomen and pressure was held over the gallbladder fossa. Next a piece of fibrillar was placed into the abdomen and the Ray-Thu was removed and fibrillar was placed in the gallbladder fossa and the Ray-Thu was once again returned over the gallbladder fossa to hold pressure. Eventually the bleeding seemed slowed. Next argon beam was used to control oozing in the gallbladder fossa. There appeared to be good hemostasis and the blood clots were suctioned. The right upper quadrant is irrigated and suctioned dry once more. The gallbladder fossa was sprayed with Surgicel powder and the Ray-Thu was removed. The abdomen was irrigated and suctioned dry and then the midline 12 mm port was removed. Using a Gideon Caballero needle the midline fascia was closed with 2 interrupted 0 Vicryl sutures. The air was then allowed to desufflate from the abdomen and the other ports were removed. All the skin incisions were injected with local anesthetic and closed with interrupted 4-0 Monocryl sutures. Steri-Strips and bandages were applied. Patient was taken to PACU. Admit VTE Documentation VTE Mechan Device Prophylaxis: SCD's
--- NOTE | 2023-03-03 15:49 | CHAPLAIN ---
Type of Pastoral Visit ___ Initial Visit ___ Follow-up Visit ___ On-call Visit ___ General Patient Visit ___ Spiritual Assessment ___ Family Conference ___ Bereavement ___ Rapid Response ___ Code Blue ___ Other (describe below) Pastoral Care Referral From ___ Patient ___ Family ___ Nurse ___ Physician ___ Broach Trouble Shooter ___ Supervisor Facepiece Line ___ Other (describe below) Sacrament/Intervention ___ Active listening ___ Anointing ___ Yarsani ___ Bereavement ___ Communion ___ Kaye exploration ___ ___ Life review ___ Prayer ___ Reconciliation ___ Sacrament of Sick ___ Supportive presence ___ Wedding ___ Other (describe below) Pastoral Comments patient and bed are out of the room; left a calling card
[2023-03-03 17:55] LABS: Bedside Glucose 142 mg/dL (74-106)
[2023-03-03 19:33] LABS: Hematocrit 38.9 % (37-47); Hemoglobin 11.9 g/dL (12.0-15.0)
--- NOTE | 2023-03-03 23:33 | NURSING ---
Pt walked in the yoon. Tolerated well.
[2023-03-04] VITALS (9 sets, daily range): BP systolic 110–153; BP diastolic 60–93; PULSE 60–94; RESP 16–18; TEMP 36.3–37.2; O2SAT 94–100
[2023-03-04] MEDS: 0.9% Normal Saline 1,000 ML 100 ML IV ×2 (04:52→14:19)
[2023-03-04 07:04] LABS: Absolute Lymphocyte Count 1.45 X10^3/uL (0.83-4.51); Absolute Neutrophil Count 13.5 X10^3/uL (2.0-7.7); Basophil# 0.02 X10^3/uL; Basophil% 0.1 % (0-1); Hemoglobin 11.7 g/dL (12.0-15.0); Lymphocyte # 1.45 X10^3/ul (0.83-4.51); Lymphocyte % 9.1 % (19-41); Mean Corp Hgb Conc 30.8 g/dL (32-36); Mean Corpuscular Hgb 27.9 pg (27.0-32.0); Mean Corpuscular Volume 90.7 fL (81-99); Mean Platelet Vol. 11.4 fl (6.2-12.0); Monocyte# 0.93 X10^3/uL; Monocyte% 5.8 % (0-10); NRBC Flagged by Analyzer 0 % (0-5); Neutrophil # 13.52 X10^3/uL (2.7-7.7); Neutrophil % 84.6 % (47-70); Platelet Count 285 K/mm3 (150-450); RBC Distribution Width CV 14.3 % (11.6-14.6); RBC Distribution Width SD 47.8 fl (35.1-43.9); Red Blood Count 4.19 M/mm3 (4.2-5.4)
[2023-03-04 07:28] LABS: ALB/GLOB Ratio 0.6 RATIO (0.9-2.4); AST(SGOT) 44 U/L (15-37); Alanine Aminotransfer ALT/SGPT 63 U/L (13-56); Albumin, Serum 2.8 g/dL (3.2-5.0); Alkaline Phosphatase 65 U/L (45-117); Anion Gap 7 (5-15); BUN 6 mg/dL (7-18); BUN/Creat Ratio 9.3 RATIO (10-20); Calcium,Total 8.9 mg/dL (8.5-10.1); Chloride 106 mmol/L (98-107); Creatinine, Serum 0.64 mg/dL (0.55-1.02); EST Glomerular Filtration Rate 112 mL/min (>60); Est Glom Filt Rate - Afr Amer 136 mL/min (>60); Estimated Creatinine Clearance 115.95 ml/min; Globulin 4.4 g/dL (2.2-4.2); Glucose 116 mg/dL (74-106); Potassium 4.1 mmol/L (3.5-5.1); Protein, Total 7.2 g/dL (6.4-8.2); Sodium Level 140 mmol/L (136-145)
[2023-03-04] MEDS: metroNIDAZOLE 500 MG/100 ML BAG 100 MG IV ×3 (08:10→22:55)
--- NOTE | 2023-03-04 08:36 | PN.SURG_ITS ---
Subjective Subjective Patient feels more comfortable than before surgery but she is still sore. She is not passing any flatus yet. Denies nausea or vomiting. Objective Data Objective Data Vital Signs: Vital Signs Temp Pulse Resp BP Pulse Ox O2 Del Method O2 Flow Rate 97.3 F L 69 16 153/93 H 96 Room Air 2 03/04/23 05:05 03/04/23 05:05 03/04/23 05:05 03/04/23 05:05 03/04/23 07:42 03/04/23 07:42 03/04/23 05:05 Oxygen Flow Rate (L/min) 2 Oxygen Delivery Method Room Air Weight: 321 lb 6.943 oz Body Mass Index (BMI) 51.8 Intake & Output: Intake and Output for Last 24 Hours 03/02/23 03/03/23 03/04/23 23:59 23:59 23:59 Intake Total 2111.67 / 2111.67 3791.66 / 3791.66 506.67 / 506.67 Output Total 850 / 850 600 / 600 Balance 2111.67 / 2111.67 2941.66 / 2941.66 -93.33 / -93.33 Lab / Micro Data 03/04/23 06:55 03/04/23 06:55 Labs: Laboratory Results - last 24 hr 03/03/23 15:14: Blood Type B POSITIVE, Antibody Screen NEGATIVE 03/03/23 17:37: POC Glucose 142 H 03/03/23 19:10: Hgb 11.9 L, Hct 38.9 03/04/23 06:55: WBC 16.0 H, RBC 4.19 L, Hgb 11.7 L, Hct 38.0, MCV 90.7, MCH 27.9, MCHC 30.8 L, RDW Std Deviation 47.8 H, RDW Coeff of Ilana 14.3, Plt Count 285, MPV 11.4, Immature Gran % (Auto) 0.400, Neut % (Auto) 84.6 H, Lymph % (Auto) 9.1 L, [place] % (Auto) 5.8, Eos % (Auto) 0.0, Baso % (Auto) 0.1, Absolute Neuts (auto) 13.5 H, Absolute Lymphs (auto) 1.45, Nucleated RBC % 0, Sodium 140, Potassium 4.1, Chloride 106, Carbon Dioxide 27.0, Anion Gap 7, BUN 6 L, Creatinine 0.64, Estim Creat Clear Calc 115.95, Est GFR (MDRD) Af Amer 136, Est GFR (MDRD) Non-Af 112, BUN/Creatinine Ratio 9.3 L, Glucose 116 H, Calcium 8.9, Total Bilirubin 0.30, AST 44 H, ALT 63 H, Alkaline Phosphatase 65, Total Protein 7.2, Albumin 2.8 L, Globulin 4.4 H, Albumin/Globulin Ratio 0.6 L Assessment & Plan Assessment/Plan (1) Acute cholecystitis: PLAN: The patient's hemoglobin appears stable. The patient had a very large colon during surgery so I assume that she has a colonic ileus. She is not passing any flatus yet. When she passes flatus I will start her on a diet. Ferdinand Nieves MD Pager: [facility] [address] [place] [address], [address] [place] [phone] Office:
[2023-03-04] MEDS: Acetaminophen 325 MG Tablet 650 MG PO ×2 (09:14→23:05)
[2023-03-04] MEDS: Ciprofloxacin 400 MG/200 ML BAG 200 MG IV ×2 (10:06→21:18)
--- NOTE | 2023-03-04 16:40 | CHAPLAIN ---
Type of Pastoral Visit _x__ Initial Visit ___ Follow-up Visit ___ On-call Visit ___ General Patient Visit ___ Spiritual Assessment ___ Family Conference ___ Bereavement ___ Rapid Response ___ Code Blue ___ Other (describe below) Pastoral Care Referral From _x__ Patient ___ Family ___ Nurse ___ Physician ___ Shop Worker ___ Manager Call Center ___ Other (describe below) Sacrament/Intervention ___ Active listening ___ Anointing ___ Denominational ___ Bereavement ___ Communion ___ Kaye exploration ___ ___ Life review ___ Prayer ___ Reconciliation ___ Sacrament of Sick _x__ Supportive presence ___ Wedding ___ Other (describe below) Pastoral Comments patient up in chair; this is post surgery; pt reports doing much better now and has no needs or concerns at this time; offer of support given for future as needed
--- NOTE | 2023-03-04 18:02 | NURSING ---
pt drank cup of chicken broth, iced tea and jello and tolerated well -advanced to full liquid
[2023-03-05 03:12] VITALS: BP 106/66; PULSE 76; RESP 16; TEMP 36.8; O2SAT 98
[2023-03-05] MEDS: Acetaminophen 325 MG Tablet 650 MG PO (03:21)
[2023-03-05] MEDS: metroNIDAZOLE 500 MG/100 ML BAG 100 MG IV (05:08)
[2023-03-05 07:43] VITALS: BP 119/74; PULSE 73; RESP 18; TEMP 36.6; O2SAT 98
--- NOTE | 2023-03-05 08:00 | PN.SURG_ITS ---
Subjective Subjective Patient reports she tolerated full liquids and is still having some right-sided pain. Objective Data Objective Data Vital Signs: Vital Signs Temp Pulse Resp BP Pulse Ox O2 Del Method O2 Flow Rate 97.9 F 73 18 119/74 98 Room Air 2 03/05/23 07:43 03/05/23 07:43 03/05/23 07:43 03/05/23 07:43 03/05/23 07:43 03/05/23 07:43 03/04/23 05:05 Oxygen Flow Rate (L/min) 2 Oxygen Delivery Method Room Air Weight: 321 lb 6.943 oz Body Mass Index (BMI) 51.8 Intake & Output: Intake and Output for Last 24 Hours 03/03/23 03/04/23 03/05/23 23:59 23:59 23:59 Intake Total 3791.66 / 3791.66 4603.25 / 4703.25 696 / 696 Output Total 850 / 850 600 / 600 Balance 2941.66 / 2941.66 4003.25 / 4103.25 696 / 696 Lab / Micro Data 03/04/23 06:55 03/04/23 06:55 Physical Exam Const oriented x3 Resp normal respiratory effort GI soft to palpation Inspection: Negative for abdominal distention Assessment & Plan Assessment/Plan (1) Acute cholecystitis: PLAN: Patient reports she is passing flatus. She is still having some mild right lower quadrant pain. I will advance her diet to regular and discharge her home. Ferdinand Nieves MD Pager: [facility] [address] [place] [address], [address] [place] [address] Office:
--- NOTE | 2023-03-05 08:11 | PCM.DC.SUM ---
Providers Date of Admission: 03/02/23 Primary Care Physician: Dr. Aicha Reinoso MD Reason For Visit: ACUTE CHOLECYSTITIS Diagnosis Discharge Diagnosis (1) Acute cholecystitis: Status: Acute Code(s): K81.0 - Acute cholecystitis Plan: Patient reports she is passing flatus. She is still having some mild right lower quadrant pain. I will advance her diet to regular and discharge her home. Ferdinand Nieves MD Pager: [facility] [address] [place] [address], [address] [place] [address] Office: Medications at Discharge Home Medications ergocalciferol (vitamin D2) 1,250 mcg (50,000 unit) capsule (Vitamin D2) 1,250 mcg PO QWEEK supplement 01/22/23 levothyroxine 200 mcg tablet (Synthroid) 200 mcg PO SUMOWEFR thyroid 01/22/23 loratadine 10 mg tablet (Claritin) 10 mg PO DAILY PRN ALLERGIES 01/22/23 metformin 500 mg tablet 1,500 mg PO QHS blood glucose 01/22/23 acetaminophen 325 mg tablet 650 mg (2 x 325 mg) PO Q4H PRN PRN Pain 1-10 Or Fever #0 tabs 03/05/23 ibuprofen 600 mg tablet 600 mg PO Q6H PRN PRN Pain 1-10 Or Fever #0 tabs 03/05/23 oxycodone 10 mg tablet 10 mg PO Q6H PRN pain 5 days #15 tabs 03/05/23 Hospital Course Operations cholecystecomy Summary of Care Provided Hospital Course: Patient was admitted with acute cholecystitis. She was taken for surgery the following day for laparoscopic cholecystectomy. It was noted that she had a very dilated colon and likely ileus due to her acute cholecystitis so she stayed n.p.o. for the day after surgery. When she started passing flatus her diet was slowly advanced and once tolerating a diet she was discharged home. Weight / BMI Weight Weight: 321 lb 6.943 oz Body Mass Index (BMI) 51.8 ABG / Lab / Microbiology Data 03/04/23 06:55 03/04/23 06:55 D/C Instructions Discharge Diet: Light diet - advance as tolerated Discharge Activity: May Not Drive (for 2-3 days or while taking narcotic pain medications.), May Shower and - (Do not drive, work heavy equipment or sign legal documents for 24 hours.) Lifting Restrictions: 20 lbs for 2 weeks Additional Activity Instructions: Pain medication may cause nausea. You should typically eat light foods as you take your pain medications. Pain medication may also cause constipation. If this is a problem for you, please discuss with your doctor. Call your doctor if your incision/area has: Continuous Slow Oozing, Sudden Increased Bleeding, Increased Pain/ Swelling, Increased Redness and Foul Smelling Discharge Call your doctor if you observe: Fever of 101 or Higher Suture Line Care: Avoid Pulling/Pushing and Avoid Pinching/Bending Remove Dressing in: 2 days Additional Dressing/Incision Instructions: Leave operative bandaids on for 2 days. When you remove dressing, leave Steri-Strips on until your follow-up appointment, or until the Steri-Strips fall off on their own. Please Follow Up With: Ferdinand Nieves MD When: Please call to schedule 2 week follow up appointment. [phone] Meaningful Use Info Meaningful Use Diagnoses (Choose all that apply): None applicable Discharge Plan Admission Admit Date/Time: 03/02/23 21:50 Attending Provider: Ferdinand Nieves Primary Care Provider: Aicha Reinoso Discharge Orders/Prescriptions Prescriptions: New acetaminophen 325 mg Tablet 650 mg PO Q4H PRN PRN (Reason: Pain 1-10 Or Fever) Qty: 0 0RF ibuprofen 600 mg Tablet 600 mg PO Q6H PRN PRN (Reason: Pain 1-10 Or Fever) Qty: 0 0RF oxycodone 10 mg tablet 10 mg PO Q6H PRN (Reason: pain) 5 Days Qty: 15 0RF Continued metformin 500 mg Tablet 1,500 mg PO QHS levothyroxine [Synthroid] 200 mcg Tablet 200 mcg PO SUMOWEFR ergocalciferol (vitamin D2) [Vitamin D2] 1,250 mcg (50,000 unit) Capsule 1,250 mcg PO QWEEK loratadine [Claritin] 10 mg Tablet 10 mg PO DAILY PRN (Reason: ALLERGIES) Referrals / Follow Up: Aicha Reinoso MD [Primary Care Provider] - Disposition Disposition (needs filled in before D/C Order can be placed): Home, Self Care
[2023-03-05 08:20] VITALS: O2SAT 95
[2023-03-05] MEDS: Ibuprofen 600 MG Tablet PO (08:58)
[2023-03-05] MEDS: Levothyroxine 100 MCG Tablet 200 MCG PO (09:46)
--- NOTE | 2023-03-05 10:48 | PHA.DC_ITS ---
Pharmacy [facility] has performed discharge medication reconciliation and counseling for this patient. The patient was counseled on the following discharge medications and changes in medications for homegoing were reviewed. 1. TYLENOL 2. IBUPROFEN 3. OXYCODONE The Reason for Use, instructions for use, and potential side effects were reviewed for all new medications. The patient's questions regarding all of their medications were answered. The patient was able to verbally demonstrate an understanding of their discharge medications. The patient's discharge medication list was reviewed for discrepancies and discrepancies were resolved. Patient was counselled by Amador Bonds PharmD Candidate 2023 Medications at Discharge Home Medications ergocalciferol (vitamin D2) 1,250 mcg (50,000 unit) capsule (Vitamin D2) 1,250 mcg PO QWEEK supplement 01/22/23 levothyroxine 200 mcg tablet (Synthroid) 200 mcg PO SUMOWEFR thyroid 01/22/23 loratadine 10 mg tablet (Claritin) 10 mg PO DAILY PRN ALLERGIES 01/22/23 metformin 500 mg tablet 1,500 mg PO QHS blood glucose 01/22/23 acetaminophen 325 mg tablet 650 mg (2 x 325 mg) PO Q4H PRN PRN Pain 1-10 Or Fever #0 tabs 03/05/23 ibuprofen 600 mg tablet 600 mg PO Q6H PRN PRN Pain 1-10 Or Fever #0 tabs 03/05/23 oxycodone 10 mg tablet 10 mg PO Q6H PRN pain 5 days #15 tabs 03/05/23
== END 2023-03-05 10:55 | disposition home or self-care (01) | DRG 418 ==
LOC: ED 16:31 → MS3 22:15
PROVIDERS: Anesthesiology; Admitting Provider Surgery; Emergency Provider Student in an Organized Health Care Education/Training Program; PCP Family Medicine; Referring Provider Surgery; Visit Provider Surgery
PROC: 0FT44ZZ Resection of Gallbladder, Percutaneous Endoscopic Approach (ICD-10-PCS; CPT 47610; principal; 2023-03-03 14:20)
DX: K80.12 Calculus of gallbladder with acute and chronic cholecystitis without obstruction (principal); Z68.41 Body mass index [BMI] 40.0-44.9, adult; E03.9 Hypothyroidism, unspecified; E66.01 Morbid (severe) obesity due to excess calories; R73.03 Prediabetes; Z79.84 Long term (current) use of oral hypoglycemic drugs; Z79.899 Other long term (current) drug therapy
CPT/HCPCS: 36415; 74177; 76705; 80053; 81001; 82962; 83690; 84443; 84484; 84703; 85014; 85018; 85025; 86850; 86900; 86901; 88304; 93005; 94668; 94762; 99285; J7030; J7050; Q9967; A4216; J0744; J2405

== ENCOUNTER → 2023-10-01 | Outpatient (CLI) | payer BC, SELFPAY ==
--- NOTE | 2023-10-01 09:18 | US_ITS ---
STUDY: ABDOMINAL ULTRASOUND - RIGHT UPPER QUADRANT; ELASTOGRAPHY REASON FOR VISIT: Female, 32 years old. Fatty infiltration of the liver. TECHNIQUE: Ultrasound evaluation of the right upper quadrant was performed with real-time and static porras-scale imaging. Point quantification shear wave elastography was performed ([employer]). TECHNICAL QUALITY: Adequate. COMPARISON: Comparison is made with prior study dated March 12, 2023. FINDINGS: Liver: The liver is mildly enlarged and measures 18.6 cm. There is increased echogenicity consistent with fatty infiltration. The bile ducts are within normal limits. There is hepatic color flow. The direction of portal flow is hepatopetal. There is no demonstrated mass lesion. Median liver stiffness measured 7.7 kPa. Gallbladder: The patient is status post cholecystectomy. Common Bile Duct (C.B.D.): The common bile duct measures 4.0 mm. Pancreas: There is normal echogenicity of the visualized pancreas. There is no demonstrated pancreatic mass or cyst. Right Kidney: Normal size of the right kidney. The right kidney measures 12.8 cm x 5.7 cm x 5 cm. Normal renal cortex. The right cortex measures 1.7 cm. There is no demonstrated renal mass or cyst. There is no right hydronephrosis. US/ABD Limited w/ Elastography IMPRESSION: 1. Liver stiffness measures 7.7 kPa compatible with F2-F3 (Mild to moderate liver fibrosis) Metavir score. 2. Fatty infiltration of the liver. Electronically Signed: Balaji Wood MD at 10:28 EST ,
--- OUTSIDE RECORDS SUMMARY | 2023-10-01 12:03 | XMS RPT_ITS | CCD ---
Author Name Unknown Address [address] [place] [address] Organization [facility] Care Team Providers Care Production Control Technologist Name Role Phone EBEN VEE, DR SURESH Primary Care Physician [phone] EBEN VEE, DR SURESH Primary Care Unavailable JAQUI VEE, ANTONIO Attending Lisa TREADWELL MD, DR SURESH Primary Care Unavailable BABAR ERVIN, ALEJANDRA Attending Lisa NAILS MD, ANTONIO Attending Lisa TREADWELL MD, DR SURESH Primary Care Unavailable JAQUI VEE, ANTONIO Attending Lisa TREADWELL MD, DR SURESH Primary Care Rusty TREADWELL MD, DR SURESH Primary Care Unavailable BABAR ERVIN, ALEJANDRA Attending Lisa TREADWELL MD, DR SURESH Primary Care Physician Allergies Allergy Classification Reported Allergen(s) Allergy Type Date of Onset Reaction(s) Facility (6 sources) Amoxicillin; Translations: [amoxicillin] Drug Allergy [facility] Medications Current Medications Medication Drug Class(es) Dates Sig (Normalized) Sig (Original) 0.5 ML tirzepatide 10 MG/ML Auto-Injector [Mounjaro] (1 source) Start: 05-14-2022 inject 1 dose by subcutaneous injection every week Mounjaro 5 mg/0.5 mL subcutaneous solution Dose : 5 mg =, Subcutaneous, qWeek, rotate injection sites, # 4 EA, 3 Refill(s), Pharmacy: [facility]/pharmacy #[id number], 165.1, cm, 04/16/22 8:25:00 EDT, Height, kg, 04/16/22 8:25:00 EDT, Dosing Weight Start Date: 9/15/22 Status: Ordered ferrous sulfate 325 mg oral tablet (6 sources) Start: 11-14-2020 IRON (ferrous sulfate 325 mg) 65 mg oral tablet Dose : 325 mg = 1 tab(s), Oral, qDay, Take with food., # 100 tab(s), 3 Refill(s), [id number], 165.1, cm, 11/14/20 15:04:00 EDT, Height, kg, 11/14/20 15:04:00 EDT, Dosing Weight Start Date: 11/14/20 Status: Ordered levothyroxine sodium 0.2 mg oral tablet (7 sources) l-Thyroxine Start: 09-08-2022 Synthroid 200 mcg (0.2 mg) oral tablet Dose : 200 mcg = 1 tab(s), Oral, qDayAC, Mon/we/fri/sun- only, # 90 tab(s), 3 Refill(s), JONG, [id number], 165.1, cm, 04/16/22 8:25:00 EDT, Height, kg, 04/16/22 8:25:00 EDT, Dosing Weight Start Date: 09/08/22 Status: Ordered Problems Problem Classification Problem Date Documented Da te Episodic/Chronic Diabetes mellitus without complication (7 sources) Prediabetes; Translations: [Prediabetes] 11-14-2020 Episodic Essential hypertension (6 sources) Hypertensive disorder 09-19-2020 Chronic Nutritional deficiencies (7 sources) Vitamin D deficiency; Translations: [Vitamin D deficiency, unspecified] 09-19-2020 Chronic Nutritional deficiencies (6 sources) Iron deficiency 11-14-2020 Episodic Other nutritional; endocrine; and metabolic disorders (6 sources) Obesity 09-19-2020 Chronic Residual codes; unclassified (1 source) Increased body mass index 02-25-2023 Episodic Thyroid disorders (14 sources) Veronika thyroiditis; Translations: [Hypothyroidism] 11-14-2020 Chronic Results Test Name Value Interpretation Reference Range Facil ity Encounters Encounter Date Encounter Type Care Provider Facility Start: 05-21-2023 End: 05-21-2023 Patient encounter procedure ANTONIO NAILS MD [facility] Start: 02-23-2023 End: 02-24-2023 ambulatory ANTONIO NAILS MD Facility:[facility] Start: 02-23-2023 End: 02-23-2023 Patient encounter procedure ANTONIO NAILS MD [facility] Start: 09-08-2022 End: 09-09-2022 ambulatory ANTONIO NAILS MD Facility:[facility] Start: 09-08-2022 End: 09-08-2022 Patient encounter procedure ANTONIO NAILS MD [facility] Start: 06-24-2022 End: 06-25-[address] KERWIN TREADWELL MD Facility:[facility] Start: 06-24-2022 End: 06-24-2022 Patient encounter procedure ALEJANDRA ECKERT [employer] OFFICER [facility] Start: 04-06-2022 End: 04-07-[address] KERWIN TREADWELL MD Facility:[facility] Start: 12-11-2021 End: 12-11-2021 Patient encounter procedure ANTONIO NAILS MD [facility] Start: 09-17-2021 End: 09-17-2021 Patient encounter procedure ANTONIO NAILS MD [facility] Immunizations Immunization Date Immunization Notes Care Provider Fa [facility] 07-16-2021 COVID-19, mRNA, LNP- S, PF, 100 mcg or 50 mcg dose; Translations: [Moderna COVID-19 Vaccine] ANTONIO NAILS MD [facility] 06-18-2021 COVID-19, mRNA, LNP- S, PF, 100 mcg or 50 mcg dose; Translations: [Moderna COVID-19 Vaccine] ANTONIO NAILS MD [facility] Payers Date Payer Category Payer Unknown [id number] 2022 Unknown [id number] 2022 Unknown [id number] 1988 Unknown [id number] [id number] [id number] 1988 Unknown [id number] 2.16.8 [id number] 1988 Unknown [id number] 2.16.8 [id number] 1988 Unknown [id number] 2.16.8 [id number] 1988 Unknown [id number] 2.16.8 [id number] Social History Date Type Detail Facility Start: 02-20-2021 Never smoked t obacco (finding) [facility] Sex Assigned At [facility] Evaluation + Plan note Note Date & Type Note Facility Evaluation + Plan note Future Appointments Appointment Date:09/25/2021 03:45:00 PM Scheduled Provider:ANTONIO NAILS MD Location:[facility] Appointment Type:ENDO OV [facility] Evaluation + Plan note Note Date & Type Note Facility Evaluation + Plan note Future Appointments Appointment Date:12/25/2021 03:15:00 PM Scheduled Provider:ANTONIO NAILS MD Location:[facility] Appointment Type:ENDO OV Diagnostic Tests PendingThyroglobulin 12/11/21 [facility] Evaluation + Plan note Laboratory Note Date & Type Note Facility Evaluation + Plan note Future Appointments Appointment Date:07/16/2022 03:15:00 PM Scheduled Provider:ANTONIO NAILS MD Location:[facility] Appointment Type:ENDO OV Future Scheduled TestsThyroid Stimulating Hormone 07/17/22Free T4 07/17/22A1C Hemoglobin 07/17/22Free T3 07/17/22Complete Metabolic Panel 07/17/22 [facility] Evaluation + Plan note Note Date & Type Note Facility Evaluation + Plan note Future Appointments Appointment Date:10/01/2022 02:45:00 PM Scheduled Provider:ANTONIO NAILS MD Location:[facility] Appointment Type:ENDO OV [facility] Evaluation + Plan note Note Date & Type Note Facility Evaluation + Plan note Future Appointments Appointment Date:02/25/2023 03:30:00 PM Scheduled Provider:ANTONIO NAILS MD Location:[facility] Appointment Type:ENDO OV [facility] Evaluation + Plan note Note Date & Type Note Facility Evaluation + Plan note Future Appointments Appointment Date:06/03/2023 02:45:00 PM Scheduled Provider:ANTONIO NAILS MD Location:[facility] Appointment Type:ENDO OV [facility] Hospital course Narrative Note Date & Type Note Facility Hospital course Narrative No data available for this section [facility] Hospital Discharge instructions Note Date & Type Note Facility Hospital Discharge instructions No data available for this section [facility] Progress note Note Date & Type Note Facility Progress note No data available for this section [facility] Summary Purpose Family History No Family History Records Found No data available for this section Advance Directives No Advanced Directives Records Found Additional Source Comments Care Team (unrecognized sect ion and content) Personnel Name: KERWIN TREADWELL MD Address: [address] [place] [address] Care Team Personnel Name: KERWIN TREADWELL MD Member Role: Primary Care Physician Address: Address: [address] [place] [address]- [place] Care Team Related Persons Name: LÓPEZ, JAMES Care Team Personnel Name: KERWIN TREADWELL MD Member Role: Primary Care Physician Address: Address: [address] [place] [address] Care Team Related Persons Name: JAMES LÓPEZ Care Team (unrecognized sect ion and content) Care Team Personnel Name: KERWIN TREADWELL MD Member Role: Primary Care Physician Address: Address: [address] [place] [address] Care Team Related Persons Name: JAMES LÓPEZ Care Team Personnel Name: KERWIN TREADWELL MD Member Role: Primary Care Physician Address: Address: [address] [place] [address] Care Team Related Persons Name: LÓPEZ, JAMES INFORMATION SOURCE (unrecogn ized section and content) FOR RECORDS PERTAINING TO PATIENTS WHO ARE OR HAVE BEEN ENROLLED IN A CHEMICAL DEPENDENCY/SUBSTANCEABUSE PROGRAM, SOME INFORMATION MAY BE OMITTED. This clinical summary was aggregated from multiple sources. Caution should be exercised in using it in the provision of clinical care. This summary normalizes information from multiple sources, and as a consequence, information in this document may materially change the coding, format and clinical context of patient data. In addition, data may be omitted in some cases. CLINICAL DECISIONS SHOULD BE BASED ON THE PRIMARY CLINICAL RECORDS. [employer] provides no warranty or guarantee of the accuracy or completeness of information in this document.
== END | disposition home or self-care (01) ==
LOC: US 09:17
PROVIDERS: PCP Family Medicine; Referring Provider Internal Medicine Gastroenterology; Visit Provider Internal Medicine Gastroenterology
DX: K76.0 Fatty (change of) liver, not elsewhere classified (principal)
CPT/HCPCS: 76705; 76981

== ENCOUNTER → 2024-05-22 | Outpatient (CLI) | payer BC, SELFPAY ==
--- NOTE | 2024-05-22 07:19 | US_ITS ---
STUDY: ABDOMINAL ULTRASOUND - RIGHT UPPER QUADRANT; ELASTOGRAPHY REASON FOR VISIT: Female, 33 years old. Fatty infiltration of the liver. TECHNIQUE: Ultrasound evaluation of the right upper quadrant was performed with real-time and static porras-scale imaging. Point quantification shear wave elastography was performed ([employer]). TECHNICAL QUALITY: Adequate. COMPARISON: Comparison is made with prior study dated October 01, 2023. FINDINGS: Liver: The liver is enlarged and measures 19 cm. There is increased echogenicity consistent with fatty infiltration. The bile ducts are within normal limits. There is hepatic color flow. The direction of portal flow is hepatopetal. There is no demonstrated mass lesion. Median liver stiffness measured 6.7 kPa. Gallbladder: The patient is status post cholecystectomy. Common Bile Duct (C.B.D.): The common bile duct measures 4 mm. Pancreas: There is normal echogenicity of the visualized pancreas. There is no demonstrated pancreatic mass or cyst. Right Kidney: Normal size of the right kidney. The right kidney measures 13.1 cm x 5.4 cm x 5.4 cm. Normal renal cortex. The right cortex measures 1.9 cm. There is no demonstrated renal mass or cyst. There is no right hydronephrosis. US/ABD Limited w/ Elastography IMPRESSION: 1. Liver stiffness measures 6. kPa compatible with F2-F3 (Mild to moderate liver fibrosis) Metavir score. Electronically Signed: Balaji Wood MD at 14:31 EDT ,
== END | disposition home or self-care (01) ==
PROVIDERS: PCP Family Medicine; Referring Provider Internal Medicine Gastroenterology; Visit Provider Internal Medicine Gastroenterology
DX: K76.0 Fatty (change of) liver, not elsewhere classified (principal)
CPT/HCPCS: 76705; 76981

== ENCOUNTER → 2024-11-22 | Outpatient (CLI) | payer MEDICAID, SELFPAY ==
--- NOTE | 2024-11-22 08:52 | US_ITS ---
EXAM: Ultrasound abdomen limited with elastography CLINICAL HISTORY: Fatty liver COMPARISON: 05/22/2024 TECHNIQUE: Ultrasound abdomen limited with elastography FINDINGS: The visualized pancreas appears within limits without ductal dilation seen. The liver measures 18.9 cm and appears diffusely increased in echogenicity which can be seen with hepatic steatosis or other hepatocellular disease. There is hepatic color flow. Flow within the portal vein appears hepatopetal as expected. Status post cholecystectomy. CBD 5 mm. The right kidney measures 12 x 5.5 x 4.3 cm with a cortical thickness of 1.9 cm. No hydronephrosis or perinephric edema seen. No free fluid seen. Liver stiffness 9.2 kPa, 1.73 m/sec US/ABD Limited w/ Elastography IMPRESSION: The liver is enlarged 18.9 cm and is diffusely increased in echogenicity which can be seen with hepatic steatosis or other hepatocellular disease. Liver stiffness 9.2 kPa, previously 6.7 kPa, again compatible with F2-F3 mild-t o-moderate liver disease Metavir staging. Reading Location: [id number]
== END | disposition home or self-care (01) ==
LOC: US 08:48
PROVIDERS: PCP Family Medicine; Referring Provider Internal Medicine Gastroenterology; Visit Provider Internal Medicine Gastroenterology
DX: K76.0 Fatty (change of) liver, not elsewhere classified (principal)
CPT/HCPCS: 76705; 76981

== ENCOUNTER 2025-05-09 14:35 | Outpatient (RCR) | payer OTHER, SELFPAY | END 2025-05-29 23:59 | LOC: NS 14:35 | PROVIDERS: PCP Family Medicine; Referring Provider Internal Medicine Gastroenterology; Visit Provider Internal Medicine Gastroenterology | DX: Z71.3 Dietary counseling and surveillance (principal); K76.0 Fatty (change of) liver, not elsewhere classified; E66.01 Morbid (severe) obesity due to excess calories; Z68.42 Body mass index [BMI] 45.0-49.9, adult | CPT/HCPCS: 97802 ==

== ENCOUNTER 2025-06-27 15:04 | Outpatient (RCR) | payer OTHER, SELFPAY | END 2025-06-29 23:59 | LOC: NS 15:04 | PROVIDERS: PCP Family Medicine; Referring Provider Internal Medicine Gastroenterology; Visit Provider Internal Medicine Gastroenterology | DX: Z71.3 Dietary counseling and surveillance (principal); E66.01 Morbid (severe) obesity due to excess calories; Z68.42 Body mass index [BMI] 45.0-49.9, adult; K76.0 Fatty (change of) liver, not elsewhere classified | CPT/HCPCS: 97803 ==

== ENCOUNTER 2025-07-30 15:59 | Outpatient (RCR) | payer OTHER, SELFPAY | END 2025-08-29 23:59 | LOC: NS 15:59 | PROVIDERS: PCP Family Medicine; Referring Provider Internal Medicine Gastroenterology; Visit Provider Internal Medicine Gastroenterology | DX: Z71.3 Dietary counseling and surveillance (principal); K76.0 Fatty (change of) liver, not elsewhere classified; E66.01 Morbid (severe) obesity due to excess calories; Z68.42 Body mass index [BMI] 45.0-49.9, adult | CPT/HCPCS: 97803 ==